=== PATIENT | female | born 1955 | race African-American/Black ===

== ENCOUNTER 2017-06-26 02:46 | Emergency (ER) | payer SELFPAY ==
[~2017-06-26] VITALS: Ht 172.7 cm; Wt 88.9 kg
[2017-06-26] MEDS ORDERED: ALBUTEROL SULF 2.5 MG/0.5ML(0.5%) NEB SOLN NEB ONE ×2 (03:15→03:30)
[2017-06-26] MEDS ORDERED: methylPREDNISolone SOD SUCC 125 MG/2 ML VL IV ONE (03:15)
[2017-06-26] MEDS ORDERED: IPRATROPIUM BROM 0.5 MG/2.5ML INH SOL NEB ONE ×2 (03:15→03:30)
[2017-06-26 03:31] LABS: Basophils # (auto) 0 uL; Basophils % (auto) 0.1 % (0.0-2.0); CONDITION Y; Eosinophils # (auto) 0 uL; Eosinophils % (auto) 0.3 % (0.0-7.0); Hematocrit 31.4 % (36.0-46.0); Hemoglobin 10.5 g/dL (12.2-16.2); Lymphocytes # (auto) 1.4 uL; Lymphocytes % (auto) 11.6 % (10.0-50.0); Mean Corpuscular Hgb Conc. 33.6 g/dL (32.0-36.0); Mean Corpuscular Volume 80.5 fL (80.0-100.0); Mean Platelet Volume 8.4 fL (7.4-10.4); Monocytes # (auto) 0.9 uL; Platelet Count (auto) 266 10^3/uL (140-450); Red Cell Distribution Width 13.5 % (11.6-16.0); White Blood Cell 12.3 10^3/uL (4.4-10.8)
[2017-06-26] MEDS ORDERED: ONDANSETRON HCL 4 MG/2 ML VIAL ONE (03:35)
[2017-06-26 03:50] LABS: INR 0.92 (0.9-1.15); Partial Thromboplastin Time 31.2 sec (22.64-33.71)
[2017-06-26 03:52] LABS: Albumin 2.6 g/dL (3.4-5.0); Anion Gap 14 (5-15); Aspartate Aminotransferase 36 U/L (15-37); BUN/Creatinine Ratio 6.7; Blood Urea Nitrogen 40 mg/dL (7-18); Carbon Dioxide 23 mmol/L (21-32); Chloride 88 mmol/L (98-107); GFR African American 9 mL/min; GFR Non-African American 8 mL/min; Glucose 107 mg/dL (74-106); Magnesium 2.6 mg/dL (1.6-2.6); Potassium 3.3 mmol/L (3.5-5.1); Sodium 125 mmol/L (136-145)
[2017-06-26 04:01] LABS: Alkaline Phosphatase 73 U/L (45-117); Bilirubin, Total 0.5 mg/dL (0.2-1.0); Total Protein 8.3 g/dL (6.4-8.2)
[2017-06-26] MEDS ORDERED: POTASSIUM CHL 20 Meq TABLET PO ONE (04:15)
[2017-06-26] MEDS ORDERED: SODIUM CHLORIDE 0.9% 1,000 ML IV ONE (04:15)
[2017-06-26 04:47] LABS: Urine Bilirubin Negative (Negative); Urine Blood 2+ /uL (Negative); Urine Color Yellow (Yellow); Urine Glucose Normal (Normal); Urine Hyaline Cast MOD /lpf (0 - 2); Urine Ketone Negative (Negative); Urine Mucus FEW (None Seen); Urine Nitrite Negative (Negative); Urine RBC 9 /hpf (0 - 4); Urine Squamous Epithelial Cell FEW /hpf (<5); Urine Urobilinogen Normal (Negative)
[2017-06-26] MEDS ORDERED: metroNIDAZOLE 500MG/100ML 100 ML IV ONE (08:00)
[2017-06-26] MEDS ORDERED: PIPERACILLIN-TAZOB 3.375GM 100 ML IV ONE (08:00)
[2017-06-26 10:23] VITALS: BP 150/89
== END 2017-06-26 04:35 | disposition home or self-care (01) ==
LOC: ER 02:46
DX: J40 Bronchitis, not specified as acute or chronic (principal); E87.6 Hypokalemia; J45.909 Unspecified asthma, uncomplicated; I10 Essential (primary) hypertension; Z90.710 Acquired absence of both cervix and uterus; Z90.49 Acquired absence of other specified parts of digestive tract
CPT/HCPCS: 36415; 71020; 74176; 80053; 81001; 83735; 84484; 85025; 85610; 85730; 87040; 93005; 94640; 96361; 96365; 96367; 96375; 99285; J2405; J2543; J2930; J3490; J7030

== ENCOUNTER 2017-06-28 13:29 | Inpatient (IN) | payer MEDICAID, OTHER ==
[~2017-06-28] VITALS: Ht 172.7 cm; Wt 97.0 kg
[2017-06-28 14:40] LABS: Basophils # (auto) 0.1 uL; Basophils % (auto) 0.4 % (0.0-2.0); Eosinophils # (auto) 0.1 uL; Eosinophils % (auto) 0.4 % (0.0-7.0); Hematocrit 28.3 % (36.0-46.0); Hemoglobin 9.5 g/dL (12.2-16.2); Lymphocytes # (auto) 1.2 uL; Lymphocytes % (auto) 7.2 % (10.0-50.0); Mean Corpuscular Hemoglobin 26.8 pg (28.0-32.0); Mean Corpuscular Hgb Conc. 33.4 g/dL (32.0-36.0); Mean Corpuscular Volume 80.4 fL (80.0-100.0); Mean Platelet Volume 7.1 fL (7.4-10.4); Monocytes # (auto) 1.2 uL; Monocytes % (auto) 7.1 % (0.0-12.0); Neutrophils # (auto) 14.3 uL; Neutrophils % (auto) 84.9 % (37.0-80.0); Platelet Count (auto) 284 10^3/uL (140-450); Red Cell Distribution Width 13.3 % (11.6-16.0); White Blood Cell 16.9 10^3/uL (4.4-10.8)
[2017-06-28 15:02] LABS: Albumin 2.4 g/dL (3.4-5.0); Alkaline Phosphatase 66 U/L (45-117); Anion Gap 12 (5-15); Aspartate Aminotransferase 30 U/L (15-37); BUN/Creatinine Ratio 7.8; Bilirubin, Total 0.3 mg/dL (0.2-1.0); Blood Urea Nitrogen 50 mg/dL (7-18); Calcium 7.9 mg/dL (8.5-10.1); Carbon Dioxide 23 mmol/L (21-32); Chloride 89 mmol/L (98-107); GFR African American 8 mL/min; GFR Non-African American 7 mL/min; Glucose 99 mg/dL (74-106); Magnesium 2.9 mg/dL (1.6-2.6); Potassium 3.3 mmol/L (3.5-5.1); Sodium 124 mmol/L (136-145); Total Protein 7.9 g/dL (6.4-8.2)
[2017-06-28] MEDS ORDERED: SODIUM CHLORIDE 0.9% 1,000 ML IV ONE (15:30)
[2017-06-28] MEDS ORDERED: PROMETHAZINE HCL 25 MG/ML 1ML IV PRN (16:15)
[2017-06-28] MEDS ORDERED: TEMAZEPAM 15 MG CAP PO PRN (16:15)
[2017-06-28] MEDS ORDERED: LACTULOSE 20Gm/30ML SOLN PO PRN (16:15)
[2017-06-28] MEDS ORDERED: POTASSIUM CHL 10% (20 MEQ/15ML) 15ml ORAL SOLN PO ONE (16:15)
[2017-06-28] MEDS ORDERED: ALBUTEROL SULF 2.5 MG/0.5ML(0.5%) NEB SOLN NEB PRN (16:15)
[2017-06-28] MEDS ORDERED: cefTRIAXone 1GM/50ML D5W 50 ML IV ONE (16:15)
[2017-06-28] MEDS ORDERED: MORPHINE SULFATE 4 MG/ML SYRG IV PRN (16:15)
[2017-06-28] MEDS ORDERED: MORPHINE SULF INJ 2 MG/ML SYRINGE 1ML IV PRN ×2 (16:15)
[2017-06-28] MEDS ORDERED: LORazepam 0.5 MG TAB PO PRN (16:15)
[2017-06-28] MEDS ORDERED: NITROGLYCERIN 0.4 MG SL TAB SL PRN (16:15)
[2017-06-28] MEDS ORDERED: AZITHROMYCIN 500MG/D5W 250ML 250 ML IV ONE (16:15)
[2017-06-28] MEDS: SODIUM CHLORIDE 0.9% 1,000 ML IV SCH (16:33)
[2017-06-28] MEDS ORDERED: NITROGLYCERIN 0.2MG/HR TOPICAL PATCH TD ONE (16:45)
[2017-06-28] MEDS ORDERED: PANTOPRAZOLE 40 MG TAB PO ONE (16:45)
[2017-06-28] MEDS ORDERED: ENOXAPARIN SOD 30 MG/0.3 ML SYRINGE SC ONE (16:45)
[2017-06-28] MEDS ORDERED: ASPirin 81 mg TAB PO ONE (16:45)
[2017-06-28 16:51] LABS: INR 0.95 (0.9-1.15); Partial Thromboplastin Time 31.5 sec (22.64-33.71); Prothrombin Time 10.4 sec (9.37-12.3)
[2017-06-28] MEDS ORDERED: ENOXAPARIN SOD 60 MG/0.6 ML SYRINGE SC ONE (18:45)
[2017-06-28 18:48] VITALS: BP 154/79
[2017-06-28] MEDS: ALBUTEROL SULF 2.5 MG/0.5ML(0.5%) NEB SOLN NEB SCH (19:35)
[2017-06-28 19:57] LABS: Hematocrit 26.7 % (36.0-46.0); Hemoglobin 8.9 g/dL (12.2-16.2)
[2017-06-28 20:00] VITALS: BP 150/76
[2017-06-28 20:55] LABS: Urine Bilirubin Negative (Negative); Urine Blood 2+ /uL (Negative); Urine Color Yellow (Yellow); Urine Glucose TRACE mg/dL (Normal); Urine Hyaline Cast FEW /lpf (0 - 2); Urine Ketone Negative (Negative); Urine Mucus FEW (None Seen); Urine Nitrite Negative (Negative); Urine RBC 71 /hpf (0 - 4); Urine Squamous Epithelial Cell MOD /hpf (<5); Urine Urobilinogen Normal (Negative); Urine pH 6.5 (5.0-8.0)
[2017-06-28 21:36] VITALS: BP 154/79
[2017-06-28 22:00] VITALS: BP 150/76
[2017-06-28] MEDS: ATORVASTATIN 20 MG TAB PO SCH (22:16)
[2017-06-28] MEDS: METOPROLOL TARTRATE 25 MG TAB PO SCH (22:17)
[2017-06-28 23:51] VITALS: BP 150/76
[2017-06-29] MEDS: SODIUM CHLORIDE 0.9% 1,000 ML IV SCH ×4 (00:37→17:14)
[2017-06-29] MEDS ORDERED: MULTTAB61 PO (01:06)
[2017-06-29] MEDS ORDERED: AMLO5TAB2 PO (01:06)
[2017-06-29] MEDS: ALBUTEROL SULF 2.5 MG/0.5ML(0.5%) NEB SOLN NEB SCH ×2 (02:00→07:44)
[2017-06-29 02:37] LABS: Basophils # (auto) 0 uL; Basophils % (auto) 0.2 % (0.0-2.0); CONDITION Y; DEFINITIVE SEE PRINTOUT; Eosinophils # (auto) 0.1 uL; Eosinophils % (auto) 0.8 % (0.0-7.0); Hematocrit 24.2 % (36.0-46.0); Hemoglobin 8.2 g/dL (12.2-16.2); Lymphocytes # (auto) 1.3 uL; Lymphocytes % (auto) 10.8 % (10.0-50.0); Mean Corpuscular Hemoglobin 27.5 pg (28.0-32.0); Mean Corpuscular Volume 80.9 fL (80.0-100.0); Monocytes # (auto) 1.2 uL; Monocytes % (auto) 10.5 % (0.0-12.0); Neutrophils # (auto) 9.1 uL; Neutrophils % (auto) 77.7 % (37.0-80.0); Platelet Count (auto) 290 10^3/uL (140-450); Red Cell Distribution Width 13.7 % (11.6-16.0); White Blood Cell 11.7 10^3/uL (4.4-10.8)
[2017-06-29 03:15] LABS: BUN/Creatinine Ratio 7.6; Bilirubin, Total 0.3 mg/dL (0.2-1.0); Calcium 7.3 mg/dL (8.5-10.1); Potassium 3.7 mmol/L (3.5-5.1); Total Protein 6.5 g/dL (6.4-8.2)
[2017-06-29 05:00] VITALS: BP 136/75
[2017-06-29 08:00] VITALS: BP 142/77
[2017-06-29] MEDS ORDERED: cefTRIAXone 1GM/50ML D5W 50 ML IV SCH (09:00)
[2017-06-29 09:35] VITALS: BP 142/77
[2017-06-29] MEDS ORDERED: NITROGLYCERIN 0.2MG/HR TOPICAL PATCH TD SCH (10:00)
[2017-06-29] MEDS ORDERED: PANTOPRAZOLE 40 MG TAB PO SCH (10:00)
[2017-06-29] MEDS ORDERED: ENOXAPARIN SOD 30 MG/0.3 ML SYRINGE SC SCH (10:00)
[2017-06-29] MEDS ORDERED: methylPREDNISolone SOD SUCC 500 MG in SODIUM CHL 0.9% 100 ML IV ONE (10:30)
[2017-06-29] MEDS: METOPROLOL TARTRATE 25 MG TAB PO SCH ×2 (10:57→21:33)
[2017-06-29] MEDS: ASPirin 81 mg TAB PO SCH (11:00)
[2017-06-29] MEDS ORDERED: LEVOFLOXACIN 500MG 100 ML IV SCH (12:15)
[2017-06-29] MEDS ORDERED: LEVOFLOXACIN 250MG 50 ML IV SCH (12:30)
[2017-06-29 13:43] VITALS: BP_SYST 126; BP_SYST 142; BP_DIAS 71; BP_DIAS 77
[2017-06-29 17:11] VITALS: BP 132/77
[2017-06-29] MEDS: ENOXAPARIN SOD 30 MG/0.3 ML SYRINGE SC SCH (17:55)
[2017-06-29] MEDS ORDERED: ENOXAPARIN SOD 100 MG/1 ML SYRINGE SC SCH (18:00)
[2017-06-29 20:00] VITALS: BP 132/64
[2017-06-29] MEDS: ATORVASTATIN 20 MG TAB PO SCH (21:33)
[2017-06-30] VITALS (7 sets, daily range): BP systolic 140–159; BP diastolic 56–85
[2017-06-30 06:53] LABS: Albumin 2.3 g/dL (3.4-5.0); Bilirubin, Direct 0.1 mg/dL (0-0.2); Bilirubin, Total 0.3 mg/dL (0.2-1.0); Phosphorus 3.9 mg/dL (2.5-4.90); Total Protein 7.6 g/dL (6.4-8.2); Uric Acid 7.6 mg/dL (2.6-6.0)
[2017-06-30] MEDS ORDERED: ceFAZolin 1GM/50ML D5W 50 ML IV ONE (07:42)
[2017-06-30] MEDS ORDERED: ACETAMINOPHEN 500 MG TAB PO PRN (08:30)
[2017-06-30] MEDS: METOPROLOL TARTRATE 25 MG TAB PO SCH ×2 (08:36→21:36)
[2017-06-30] MEDS: ASPirin 81 mg TAB PO SCH (09:10)
[2017-06-30 09:56] LABS: Urine Bilirubin Negative (Negative); Urine Blood 2+ /uL (Negative); Urine Color Yellow (Yellow); Urine Glucose 2+ mg/dL (Normal); Urine Hyaline Cast FEW /lpf (0 - 2); Urine Ketone Negative (Negative); Urine Nitrite Negative (Negative); Urine RBC 63 /hpf (0 - 4); Urine Squamous Epithelial Cell FEW /hpf (<5); Urine Urobilinogen Normal (Negative); Urine pH 6.5 (5.0-8.0)
[2017-06-30 09:59] LABS: Hepatitis B Surface Antibody Negative
[2017-06-30] MEDS: SODIUM CHLORIDE 0.9% 1,000 ML IV SCH ×2 (10:37→14:50)
[2017-06-30] MEDS: ENOXAPARIN SOD 30 MG/0.3 ML SYRINGE SC SCH (15:42)
[2017-06-30] MEDS ORDERED: methylPREDNISolone SOD SUCC 500 MG in SODIUM CHL 0.9% 100 ML IV ONE (19:00)
[2017-06-30] MEDS: ATORVASTATIN 20 MG TAB PO SCH (21:36)
[2017-07-01] VITALS (7 sets, daily range): BP systolic 148–163; BP diastolic 71–93
[2017-07-01 05:06] LABS: Thyroid Peroxidase (TPO) Ab 10 IU/mL (0-34)
[2017-07-01 05:06] LABS: Thyroid Peroxidase (TPO) Ab 11 IU/mL (0-34)
[2017-07-01] MEDS: SODIUM CHLORIDE 0.9% 1,000 ML IV SCH ×2 (05:08→14:24)
[2017-07-01 06:21] LABS: Basophils # (auto) 0 uL; Eosinophils # (auto) 0 uL; Hematocrit 25.9 % (36.0-46.0); Hemoglobin 8.4 g/dL (12.2-16.2); Lymphocytes # (auto) 0.8 uL; Lymphocytes % (auto) 4.2 % (10.0-50.0); Mean Corpuscular Hemoglobin 26.2 pg (28.0-32.0); Mean Corpuscular Hgb Conc. 32.2 g/dL (32.0-36.0); Mean Corpuscular Volume 81.4 fL (80.0-100.0); Mean Platelet Volume 7.9 fL (7.4-10.4); Monocytes # (auto) 0.2 uL; Monocytes % (auto) 1.2 % (0.0-12.0); Neutrophils # (auto) 17.7 uL; Neutrophils % (auto) 94.6 % (37.0-80.0); Platelet Count (auto) 350 10^3/uL (140-450); Red Cell Distribution Width 13.9 % (11.6-16.0); White Blood Cell 18.7 10^3/uL (4.4-10.8)
[2017-07-01 07:03] LABS: Calcium 7.7 mg/dL (8.5-10.1); Potassium 4.4 mmol/L (3.5-5.1)
[2017-07-01 07:05] LABS: BUN/Creatinine Ratio 8.4
[2017-07-01] MEDS: ASPirin 81 mg TAB PO SCH (10:14)
[2017-07-01] MEDS: METOPROLOL TARTRATE 25 MG TAB PO SCH ×2 (10:14→22:00)
[2017-07-01] MEDS ORDERED: LIDOCAINE 2%HCL (LOCAL ANESTH.) INJ 20ML MDV ONE (12:47)
[2017-07-01] MEDS ORDERED: MIDAZOLAM HCL 1MG/1ML-2 ML VIAL ONE (13:13)
[2017-07-01] MEDS ORDERED: fentaNYL CITRATE 100 MCG/2 ML VL ONE (13:13)
[2017-07-01] MEDS ORDERED: methylPREDNISolone SOD SUCC 500 MG in SODIUM CHL 0.9% 100 ML IV ONE (17:30)
[2017-07-01 19:11] LABS: Sjogren's Anti-SS-A Antibody <0.2 AI (0.0-0.9)
[2017-07-01 19:11] LABS: Sjogren's Anti-SS-A Antibody <0.2 AI (0.0-0.9)
[2017-07-01] MEDS: ATORVASTATIN 20 MG TAB PO SCH (22:00)
[2017-07-02 05:00] VITALS: BP 155/70
[2017-07-02 06:26] LABS: Hemoglobin 7.7 g/dL (12.2-16.2); Mean Corpuscular Hemoglobin 27.2 pg (28.0-32.0); Mean Corpuscular Hgb Conc. 33.5 g/dL (32.0-36.0); Mean Corpuscular Volume 81.2 fL (80.0-100.0); Mean Platelet Volume 7.9 fL (7.4-10.4); Platelet Count (auto) 331 10^3/uL (140-450); Red Cell Distribution Width 14.2 % (11.6-16.0); White Blood Cell 14.4 10^3/uL (4.4-10.8)
[2017-07-02 06:38] LABS: Metamyelocytes % 0; Myelocytes % 0; Promyelocytes % 0; Reactive Lymphocytes 0
[2017-07-02 06:39] LABS: Calcium 7.4 mg/dL (8.5-10.1); Potassium 4.1 mmol/L (3.5-5.1)
[2017-07-02 07:48] LABS: Platelet Estimate Adequate
[2017-07-02 08:35] VITALS: BP 158/82
[2017-07-02] MEDS: ASPirin 81 mg TAB PO SCH (09:22)
[2017-07-02] MEDS: METOPROLOL TARTRATE 25 MG TAB PO SCH (09:22)
[2017-07-02] MEDS: SODIUM CHLORIDE 0.9% 1,000 ML IV SCH (09:23)
[2017-07-02 10:07] LABS: Anti-intermyofibrillar Ab Negative (Neg:<1:20); Anti-sarcolemma Antibody Negative (Neg:<1:20)
[2017-07-02 10:07] LABS: Anti-intermyofibrillar Ab Negative (Neg:<1:20); Anti-sarcolemma Antibody Negative (Neg:<1:20)
[2017-07-02 11:07] LABS: Antiproteinase 3 (PR-3) Ab <3.5 U/mL (0.0-3.5)
[2017-07-02 11:46] VITALS: BP 154/68
[2017-07-02] MEDS ORDERED: MET25T PO (12:34)
[2017-07-02] MEDS ORDERED: ALBUAER3 IN (12:34)
[2017-07-02] MEDS ORDERED: GUAI600T23 PO (12:34)
[2017-07-02] MEDS ORDERED: FER325T PO (12:40)
[2017-07-02] MEDS ORDERED: PANT40TA2 PO (12:40)
== END 2017-07-02 16:02 | disposition home or self-care (01) | DRG 470 ==
LOC: EDBD 13:29 → ER 13:36 → TELE 13:37 → TELE-WESTW 18:35
PROVIDERS: ADMIT Internal Medicine; ATTEND Internal Medicine
PROC: 0TB13ZX Excision of Left Kidney, Percutaneous Approach, Diagnostic (ICD-10-PCS; principal; 2017-07-01)
DX: I12.0 Hypertensive chronic kidney disease with stage 5 chronic kidney disease or end stage renal disease (principal); E43 Unspecified severe protein-calorie malnutrition; N17.9 Acute kidney failure, unspecified; J18.9 Pneumonia, unspecified organism; N18.5 Chronic kidney disease, stage 5; M62.82 Rhabdomyolysis; E87.1 Hypo-osmolality and hyponatremia; E87.6 Hypokalemia; D63.8 Anemia in other chronic diseases classified elsewhere; E66.9 Obesity, unspecified; J45.909 Unspecified asthma, uncomplicated; R31.29 Other microscopic hematuria; T38.0X5A Adverse effect of glucocorticoids and synthetic analogues, initial encounter; Z87.891 Personal history of nicotine dependence; Z68.30 Body mass index [BMI] 30.0-30.9, adult; Z90.710 Acquired absence of both cervix and uterus; Z90.49 Acquired absence of other specified parts of digestive tract; Z88.8 Allergy status to other drugs, medicaments and biological substances; Z88.5 Allergy status to narcotic agent; Z68.32 Body mass index [BMI] 32.0-32.9, adult
CPT/HCPCS: 10022; 36415; 71010; 76775; 77012; 78582; 80048; 80053; 80061; 80076; 80307; 81001; 82306; 82550; 82570; 83520; 83540; 83550; 83735; 83874; 84100; 84156; 84300; 84443; 84484; 84550; 85007; 85014; 85018; 85025; 85027; 85045; 85379; 85610; 85652; 85730; 86225; 86235; 86256; 86703; 86704; 86706; 86708; 86803; 87040; 87086; 87278; 87340; 93005; 93306; 93970; 94640; 94761; 96361; 96365; 96368; 96372; J0690; J0696; J2250

== ENCOUNTER 2017-07-09 17:47 | Inpatient (IN) | payer MEDICAID ==
[~2017-07-09] VITALS: Ht 175.3 cm; Wt 92.7 kg
[~2017-07-09 17:47] MED LIST: ALBUAER3 IN; AMLO5TAB2 PO; FER325T PO; GUAI600T23 PO; MET25T PO; MULTTAB61 PO; PANT40TA2 PO
[2017-07-09 18:57] LABS: Basophils # (auto) 0 uL; Basophils % (auto) 0.2 % (0.0-2.0); Eosinophils # (auto) 0 uL; Hematocrit 26.4 % (36.0-46.0); Hemoglobin 8.9 g/dL (12.2-16.2); Lymphocytes # (auto) 0.6 uL; Lymphocytes % (auto) 2.9 % (10.0-50.0); Mean Corpuscular Hemoglobin 27.3 pg (28.0-32.0); Mean Corpuscular Hgb Conc. 33.6 g/dL (32.0-36.0); Mean Corpuscular Volume 81.1 fL (80.0-100.0); Mean Platelet Volume 8.2 fL (6.9-10.8); Monocytes # (auto) 0.4 uL; Monocytes % (auto) 2.1 % (0.0-12.0); Neutrophils # (auto) 18.6 uL; Neutrophils % (auto) 94.8 % (37.0-80.0); Platelet Count (auto) 262 10^3/uL (140-450); Red Cell Distribution Width 14.6 % (11.8-14.3); White Blood Cell 19.6 10^3/uL (4.4-10.8)
[2017-07-09 19:02] LABS: Albumin 2.7 g/dL (3.4-5.0); BUN/Creatinine Ratio 15.2; Bilirubin, Total 0.5 mg/dL (0.2-1.0); Calcium 7.9 mg/dL (8.5-10.1); Potassium 4.1 mmol/L (3.5-5.1); Total Protein 7.5 g/dL (6.4-8.2)
[2017-07-09 20:56] LABS: Urine Bilirubin Negative (Negative); Urine Blood 2+ /uL (Negative); Urine Color Yellow (Yellow); Urine Glucose TRACE mg/dL (Normal); Urine Hyaline Cast FEW /lpf (0 - 2); Urine Ketone Negative (Negative); Urine Nitrite Negative (Negative); Urine RBC 37 /hpf (0 - 4); Urine Squamous Epithelial Cell FEW /hpf (<5); Urine Urobilinogen Normal (Negative)
[2017-07-09] MEDS ORDERED: PRE5T GT (22:58)
[2017-07-09] MEDS ORDERED: FURO40TA4 PO (22:58)
[2017-07-10] VITALS (8 sets, daily range): BP systolic 133–182; BP diastolic 67–99
[2017-07-10] MEDS ORDERED: ALBUTEROL SULF 2.5 MG/0.5ML(0.5%) NEB SOLN NEB PRN (01:45)
[2017-07-10] MEDS ORDERED: MORPHINE SULF INJ 2 MG/ML SYRINGE 1ML IV PRN (01:45)
[2017-07-10] MEDS ORDERED: TEMAZEPAM 15 MG CAP PO PRN (01:45)
[2017-07-10] MEDS ORDERED: ONDANSETRON HCL 4 MG/2 ML VIAL IV PRN (01:45)
[2017-07-10] MEDS ORDERED: ACETAMINOPHEN 325 MG TAB PO PRN (01:45)
[2017-07-10] MEDS ORDERED: cefTRIAXone 1GM/50ML D5W 50 ML IV ONE (01:45)
[2017-07-10] MEDS ORDERED: AML5T PO (04:07)
[2017-07-10] MEDS ORDERED: PRE5T PO (04:07)
[2017-07-10] MEDS ORDERED: FUROSEMIDE 40 MG TAB PO SCH (06:00)
[2017-07-10] MEDS ORDERED: amLODIPine BESYLATE 5 MG TAB PO SCH (10:00)
[2017-07-10] MEDS: ENOXAPARIN SOD 30 MG/0.3 ML SYRINGE SC SCH (11:12)
[2017-07-10] MEDS: PANTOPRAZOLE 40 MG TAB PO SCH (11:13)
[2017-07-10] MEDS: METOPROLOL TARTRATE 25 MG TAB PO SCH ×2 (11:14→21:29)
[2017-07-10] MEDS ORDERED: TUBERCULIN PPD 5 UNIT/0.1 ML ID ONE (13:00)
[2017-07-10] MEDS: cefTRIAXone 1GM/50ML D5W 50 ML IV SCH (13:00)
[2017-07-10] MEDS ORDERED: amLODIPine BESYLATE 5 MG TAB PO ONE (13:15)
[2017-07-10] MEDS ORDERED: predniSONE 20 MG TAB PO ONE (13:15)
[2017-07-10] MEDS ORDERED: FUROSEMIDE 40 MG TAB PO ONE (15:45)
[2017-07-10] MEDS: FUROSEMIDE 40 MG TAB PO SCH (18:00)
[2017-07-10] MEDS ORDERED: cefTRIAXone 1GM/50ML D5W 50 ML IV SCH (22:00)
[2017-07-11 05:00] VITALS: BP 153/84
[2017-07-11] MEDS: FUROSEMIDE 40 MG TAB PO SCH ×2 (05:51→15:26)
[2017-07-11 06:27] LABS: Hematocrit 25.2 % (36.0-46.0); Hemoglobin 8.4 g/dL (12.2-16.2); Mean Corpuscular Hemoglobin 26.9 pg (28.0-32.0); Mean Corpuscular Hgb Conc. 33.3 g/dL (32.0-36.0); Mean Corpuscular Volume 80.7 fL (80.0-100.0); Mean Platelet Volume 8.9 fL (6.9-10.8); Platelet Count (auto) 195 10^3/uL (140-450); Red Cell Distribution Width 15.2 % (11.8-14.3); White Blood Cell 14.1 10^3/uL (4.4-10.8)
[2017-07-11 06:31] LABS: Metamyelocytes % 0; Myelocytes % 0; Promyelocytes % 0; Reactive Lymphocytes 0
[2017-07-11 06:55] LABS: Albumin 2.5 g/dL (3.4-5.0); BUN/Creatinine Ratio 15.3; Bilirubin, Total 0.5 mg/dL (0.2-1.0); Calcium 7.5 mg/dL (8.5-10.1); Phosphorus 5.6 mg/dL (2.5-4.90); Total Protein 6.7 g/dL (6.4-8.2)
[2017-07-11 08:00] VITALS: BP 160/83
[2017-07-11 08:36] VITALS: BP 160/83
[2017-07-11 09:08] LABS: Platelet Estimate Adequate
[2017-07-11] MEDS: METOPROLOL TARTRATE 25 MG TAB PO SCH (09:59)
[2017-07-11] MEDS: PANTOPRAZOLE 40 MG TAB PO SCH (09:59)
[2017-07-11] MEDS ORDERED: amLODIPine BESYLATE 5 MG TAB PO SCH (10:00)
[2017-07-11] MEDS: ENOXAPARIN SOD 30 MG/0.3 ML SYRINGE SC SCH (10:00)
[2017-07-11] MEDS ORDERED: CYCLOPHOSPHAMIDE IV ONE ×2 (10:30→11:00)
[2017-07-11] MEDS ORDERED: SODIUM CHL 0.9% IV ONE (11:00)
[2017-07-11 12:51] VITALS: BP 152/83
[2017-07-11 15:17] VITALS: BP 152/83
[2017-07-11] MEDS: cefTRIAXone 1GM/50ML D5W 50 ML IV SCH (18:56)
[2017-07-13 16:06] LABS: Vitamin D 25-Hydroxy 18 ng/mL (.); Vitamin D-2 25-Hydroxy <1.0 ng/mL (.)
== END 2017-07-11 20:02 | disposition home or self-care (01) | DRG 462 ==
LOC: ER 17:49 → OVERFLOW 17:50 → WEST WING 07-10 02:42
PROVIDERS: ADMIT Internal Medicine; ATTEND Internal Medicine
DX: N01.9 Rapidly progressive nephritic syndrome with unspecified morphologic changes (principal); E43 Unspecified severe protein-calorie malnutrition; M31.7 Microscopic polyangiitis; N17.9 Acute kidney failure, unspecified; I12.0 Hypertensive chronic kidney disease with stage 5 chronic kidney disease or end stage renal disease; N18.6 End stage renal disease; K21.9 Gastro-esophageal reflux disease without esophagitis; D72.829 Elevated white blood cell count, unspecified; E66.9 Obesity, unspecified; K44.9 Diaphragmatic hernia without obstruction or gangrene; D64.9 Anemia, unspecified; Z82.49 Family history of ischemic heart disease and other diseases of the circulatory system; Z68.31 Body mass index [BMI] 31.0-31.9, adult; Z88.5 Allergy status to narcotic agent; Z79.899 Other long term (current) drug therapy; Z90.49 Acquired absence of other specified parts of digestive tract; Z90.710 Acquired absence of both cervix and uterus
CPT/HCPCS: 36415; 71010; 74176; 80053; 80307; 81001; 82306; 82728; 83540; 83550; 83690; 83970; 84100; 85007; 85025; 85027; 85652; 87040; 87081; 87086; 93005; J0696; J9070

== ENCOUNTER 2017-10-10 11:24 | Inpatient (IN) | payer MEDICAID ==
[~2017-10-10] VITALS: Ht 172.7 cm; Wt 82.9 kg
[2017-10-10] VITALS (9 sets, daily range): BP systolic 104–150; BP diastolic 54–77
[~2017-10-10 11:24] MED LIST changes: +AML5T PO; -AMLO5TAB2 PO; +FURO40TA4 PO; +PRE5T PO
[2017-10-10 12:12] LABS: Hemoglobin 7.2 g/dL (12.2-16.2); Platelet Count (auto) 166 10^3/uL (140-450)
[2017-10-10 12:14] LABS: Hematocrit 21.2 % (36.0-46.0); Mean Corpuscular Hemoglobin 31.1 pg (28.0-32.0); Mean Corpuscular Hgb Conc. 33.8 g/dL (32.0-36.0); Mean Corpuscular Volume 92.1 fL (80.0-100.0)
[2017-10-10 12:19] LABS: White Blood Cell 1.9 10^3/uL (4.4-10.8)
[2017-10-10 12:20] LABS: Red Cell Distribution Width 23.8 % (11.8-14.3)
[2017-10-10 12:21] LABS: Band Neutrophils % (manual) 0; Basophils % (manual) 0 (0.0-2.0); Blast Cells 0; Eosinophils % (manual) 0 (0-7); Metamyelocytes % 0; Myelocytes % 0; Promyelocytes % 0; Reactive Lymphocytes 0
[2017-10-10 12:30] LABS: Albumin 2.7 g/dL (3.4-5.0); BUN/Creatinine Ratio 6.3; Bilirubin, Total 0.7 mg/dL (0.2-1.0); Potassium 3.4 mmol/L (3.5-5.1); Total Protein 6.1 g/dL (6.4-8.2)
[2017-10-10 13:27] LABS: Lymphocytes % (manual) 3 (10.0-50.0); Monocytes % (manual) 3 (0-12)
[2017-10-10] MEDS ORDERED: ACETAMINOPHEN 325 MG TAB PO ONE (13:45)
[2017-10-10] MEDS ORDERED: ALBUTEROL SULF 2.5 MG/0.5ML(0.5%) NEB SOLN HHN ONE (13:45)
[2017-10-10] MEDS ORDERED: LEVOFLOXACIN 500MG 100 ML IV ONE (13:45)
[2017-10-10] MEDS ORDERED: IPRATROPIUM BROM 0.5 MG/2.5ML INH SOL HHN ONE (13:45)
[2017-10-10] MEDS ORDERED: SODIUM CHLORIDE 0.9% 1,000 ML IV ONE (13:45)
[2017-10-10] MEDS ORDERED: FILGRASTIM 300 MCG INJ VIAL SC ONE (16:45)
[2017-10-10] MEDS ORDERED: MORPHINE SULFATE 4 MG/ML SYR/VIAL IV PRN ×3 (16:45)
[2017-10-10] MEDS ORDERED: LACTULOSE 20Gm/30ML SOLN PO PRN (16:45)
[2017-10-10] MEDS ORDERED: LORazepam 0.5 MG TAB PO PRN (16:45)
[2017-10-10] MEDS ORDERED: NITROGLYCERIN 0.4 MG SL TAB SL PRN (16:45)
[2017-10-10] MEDS ORDERED: cefTRIAXone 1GM/10ml IVPUSH 10 ML IV ONE (16:45)
[2017-10-10] MEDS ORDERED: TEMAZEPAM 15 MG CAP PO PRN (16:45)
[2017-10-10 17:00] LABS: Hematocrit 18.2 % (36.0-46.0)
[2017-10-10] MEDS ORDERED: PANTOPRAZOLE 40 MG TAB PO ONE (17:00)
[2017-10-10 17:13] LABS: Hemoglobin 6.2 g/dL (12.2-16.2)
[2017-10-10] MEDS: SODIUM CHLOR 0.9% PF (SALINE LOCK) 10ML VIAL IV SCH (22:00)
[2017-10-11] VITALS (9 sets, daily range): BP systolic 132–154; BP diastolic 60–92
[2017-10-11 03:10] LABS: Hematocrit 26.7 % (36.0-46.0); Hemoglobin 9.1 g/dL (12.2-16.2); Mean Corpuscular Hemoglobin 30.3 pg (28.0-32.0); Mean Corpuscular Hgb Conc. 34.2 g/dL (32.0-36.0); Mean Corpuscular Volume 88.4 fL (80.0-100.0); Platelet Count (auto) 143 10^3/uL (140-450); Red Blood Cells 3.02 10^6/uL (4.0-5.20)
[2017-10-11 03:13] LABS: Red Cell Distribution Width 21.2 % (11.8-14.3)
[2017-10-11 03:14] LABS: Band Neutrophils % (manual) 0; Basophils % (manual) 0 (0.0-2.0); Blast Cells 0; Metamyelocytes % 0; Monocytes % (manual) 0 (0-12); Myelocytes % 0; Promyelocytes % 0; Reactive Lymphocytes 0
[2017-10-11 03:33] LABS: Albumin 2.4 g/dL (3.4-5.0); BUN/Creatinine Ratio 7.2; Bilirubin, Total 0.6 mg/dL (0.2-1.0); Calcium 7.5 mg/dL (8.5-10.1); Total Protein 5.7 g/dL (6.4-8.2)
[2017-10-11 04:57] LABS: Eosinophils % (manual) 3 (0-7); Lymphocytes % (manual) 2 (10.0-50.0)
[2017-10-11] MEDS: ACETAMINOPHEN 500 MG TAB PO PRN (05:05)
[2017-10-11] MEDS ORDERED: ALBUTEROL SULF 2.5 MG/0.5ML(0.5%) NEB SOLN ONE (05:57)
[2017-10-11] MEDS ORDERED: FUROSEMIDE 40 MG/4 ML VIAL IV ONE (06:00)
[2017-10-11] MEDS: SODIUM CHLOR 0.9% PF (SALINE LOCK) 10ML VIAL IV SCH ×3 (06:25→22:23)
[2017-10-11 06:35] LABS: Urine Bacteria NONE SEEN /hpf (None Seen); Urine Blood TRACE /uL (Negative); Urine Specific Gravity 1.015 (1.001-1.035); Urine WBC 2 /hpf (0 - 5)
[2017-10-11] MEDS: ALBUTEROL SULF 2.5 MG/0.5ML(0.5%) NEB SOLN NEB SCH ×3 (06:40→19:52)
[2017-10-11] MEDS ORDERED: cefTRIAXone 1GM/10ml IVPUSH 10 ML IV SCH (09:00)
[2017-10-11] MEDS: PANTOPRAZOLE 40 MG TAB PO SCH (09:47)
[2017-10-11] MEDS ORDERED: SODIUM CHL 0.9% 1000 ML BAG XX ONE (11:15)
[2017-10-11] MEDS ORDERED: EPOETIN ALFA 10,000 UNIT/1 ML VIAL IV ONE (11:15)
[2017-10-11] MEDS ORDERED: POTASSIUM CHL 20 Meq TABLET PO ONE (11:15)
[2017-10-11 11:38] LABS: Protein, Urine 474.9 mg/dL (0.0-11.9)
[2017-10-11] MEDS ORDERED: SODIUM CHLORIDE 0.9% 1,000 ML IV SCH (13:30)
[2017-10-11] MEDS ORDERED: predniSONE 20 MG TAB PO ONE (13:30)
[2017-10-11] MEDS ORDERED: VANCOMYCIN PER PHARMACY 0 MG IV SCH (13:30)
[2017-10-11] MEDS ORDERED: MORPHINE SULFATE 4 MG/ML SYR/VIAL IV PRN (13:30)
[2017-10-11] MEDS ORDERED: CYCL60CA PO (13:35)
[2017-10-11] MEDS ORDERED: PIPERACILLIN-TAZOB 0.75 GM in D5W 5% 50 ML IV SCH (14:00)
[2017-10-11] MEDS ORDERED: PIPERACILLIN-TAZOB 3.375GM 50 ML IV ONE (14:00)
[2017-10-11] MEDS ORDERED: VANCOMYCIN 1GM/250ML 250 ML IV ONE (15:00)
[2017-10-11] MEDS: PIPERACILLIN-TAZOB 2.25GM 50 ML IV SCH (22:23)
[2017-10-12] MEDS: ALBUTEROL SULF 2.5 MG/0.5ML(0.5%) NEB SOLN NEB SCH ×4 (00:45→19:24)
[2017-10-12] MEDS: ACETAMINOPHEN 500 MG TAB PO PRN ×3 (04:09→21:35)
[2017-10-12 05:10] VITALS: BP 150/77
[2017-10-12] MEDS: SODIUM CHLOR 0.9% PF (SALINE LOCK) 10ML VIAL IV SCH ×3 (06:06→22:00)
[2017-10-12 06:11] LABS: Hematocrit 25.6 % (36.0-46.0); Hemoglobin 8.7 g/dL (12.2-16.2); Mean Corpuscular Hemoglobin 30.3 pg (28.0-32.0); Mean Corpuscular Hgb Conc. 34.2 g/dL (32.0-36.0); Mean Corpuscular Volume 88.6 fL (80.0-100.0); Platelet Count (auto) 121 10^3/uL (140-450); Red Blood Cells 2.89 10^6/uL (4.0-5.20)
[2017-10-12 06:32] LABS: BUN/Creatinine Ratio 4.4; Calcium 7.4 mg/dL (8.5-10.1); Magnesium 1.9 mg/dL (1.6-2.6); Potassium 3.6 mmol/L (3.5-5.1)
[2017-10-12 06:50] LABS: Red Cell Distribution Width 21.6 % (11.8-14.3)
[2017-10-12 06:51] LABS: Band Neutrophils % (manual) 0; Basophils % (manual) 0 (0.0-2.0); Blast Cells 0; Eosinophils % (manual) 0 (0-7); Metamyelocytes % 0; Myelocytes % 0; Promyelocytes % 0; Reactive Lymphocytes 0
[2017-10-12 07:03] LABS: Lymphocytes % (manual) 1 (10.0-50.0); Monocytes % (manual) 10 (0-12)
[2017-10-12 07:30] VITALS: BP 139/83
[2017-10-12 08:55] VITALS: BP 139/83
[2017-10-12] MEDS ORDERED: SODIUM CHL 0.9% 1000 ML BAG XX ONE (10:30)
[2017-10-12] MEDS ORDERED: EPOETIN ALFA 10,000 UNIT/1 ML VIAL IV ONE (10:30)
[2017-10-12] MEDS: predniSONE 20 MG TAB PO SCH (10:35)
[2017-10-12] MEDS: PIPERACILLIN-TAZOB 2.25GM 50 ML IV SCH ×2 (10:36→22:21)
[2017-10-12] MEDS: PANTOPRAZOLE 40 MG TAB PO SCH (10:36)
[2017-10-12] MEDS ORDERED: MAGNESIUM SULFATE 1GM/100ML 100 ML IV ONE (12:45)
[2017-10-12 13:23] VITALS: BP 155/79
[2017-10-12] MEDS: ACYCLOVIR SOD 50MG/ML 500 MG in D5W 5% 100 ML IV SCH ×2 (14:20→22:21)
[2017-10-12] MEDS: SODIUM CHLORIDE 0.9% 1,000 ML IV SCH (14:21)
[2017-10-12 20:00] VITALS: BP 142/71
[2017-10-12] MEDS ORDERED: VANCOMYCIN 500 MG in D5W 5% 100 ML IV ONE (20:00)
[2017-10-12 22:03] VITALS: BP 142/71
[2017-10-13] VITALS (7 sets, daily range): BP systolic 128–162; BP diastolic 62–95
[2017-10-13] MEDS: ALBUTEROL SULF 2.5 MG/0.5ML(0.5%) NEB SOLN NEB SCH ×5 (00:44→23:53)
[2017-10-13] MEDS: ACETAMINOPHEN 500 MG TAB PO PRN ×2 (04:26→17:29)
[2017-10-13] MEDS: SODIUM CHLORIDE 0.9% 1,000 ML IV SCH ×2 (04:28→11:30)
[2017-10-13] MEDS: SODIUM CHLOR 0.9% PF (SALINE LOCK) 10ML VIAL IV SCH ×3 (06:12→22:20)
[2017-10-13] MEDS: ACYCLOVIR SOD 50MG/ML 500 MG in D5W 5% 100 ML IV SCH ×3 (06:12→22:22)
[2017-10-13 06:32] LABS: Basophils # (auto) 0 uL; Basophils % (auto) 0.5 % (0.0-2.0); Eosinophils # (auto) 0 uL; Eosinophils % (auto) 0.1 % (0.0-7.0); Hematocrit 24.9 % (36.0-46.0); Hemoglobin 8.5 g/dL (12.2-16.2); Lymphocytes # (auto) 0 uL; Mean Corpuscular Hemoglobin 30.4 pg (28.0-32.0); Mean Corpuscular Hgb Conc. 34.2 g/dL (32.0-36.0); Mean Corpuscular Volume 88.9 fL (80.0-100.0); Monocytes # (auto) 0.2 uL; Monocytes % (auto) 9.8 % (0.0-12.0); Neutrophils # (auto) 1.8 uL; Neutrophils % (auto) 88.6 % (37.0-80.0); Nucleated Red Blood Cells % 1.9 %; Platelet Count (auto) 114 10^3/uL (140-450)
[2017-10-13 06:37] LABS: Red Cell Distribution Width 22.1 % (11.8-14.3)
[2017-10-13 06:54] LABS: Albumin 2.1 g/dL (3.4-5.0); Bilirubin, Total 0.6 mg/dL (0.2-1.0); Calcium 7.4 mg/dL (8.5-10.1); Magnesium 2.2 mg/dL (1.6-2.6); Total Protein 5.2 g/dL (6.4-8.2)
[2017-10-13] MEDS: PANTOPRAZOLE 40 MG TAB PO SCH (09:59)
[2017-10-13] MEDS: predniSONE 20 MG TAB PO SCH (09:59)
[2017-10-13] MEDS ORDERED: VANCOMYCIN HCL 125MG/5ML ORAL SOL PO SCH (12:00)
[2017-10-13] MEDS: FILGRASTIM 480 MCG INJ VIAL SC SCH (14:45)
[2017-10-13] MEDS: metroNIDAZOLE 500MG/100ML 100 ML IV SCH ×2 (15:27→18:22)
[2017-10-13] MEDS: VANCOMYCIN HCL 500MG/5ML ORAL SOL PO SCH ×2 (18:22→22:22)
[2017-10-13] MEDS ORDERED: FAMOTIDINE 20 MG TAB PO SCH (22:00)
[2017-10-13] MEDS: METOPROLOL TARTRATE 25 MG TAB PO SCH (22:23)
[2017-10-14] VITALS (7 sets, daily range): BP systolic 136–158; BP diastolic 76–96
[2017-10-14 05:37] LABS: Basophils # (auto) 0 uL; Eosinophils # (auto) 0 uL; Lymphocytes # (auto) 0 uL; Monocytes # (auto) 0.2 uL; Neutrophils # (auto) 1.2 uL
[2017-10-14 05:40] LABS: Basophils % (auto) 0.5 % (0.0-2.0); Eosinophils % (auto) 0.4 % (0.0-7.0); Hematocrit 26.7 % (36.0-46.0); Lymphocytes % (auto) 1.8 % (10.0-50.0); Mean Corpuscular Hemoglobin 30.3 pg (28.0-32.0); Mean Corpuscular Hgb Conc. 33.8 g/dL (32.0-36.0); Mean Corpuscular Volume 89.6 fL (80.0-100.0); Monocytes % (auto) 15.8 % (0.0-12.0); Neutrophils % (auto) 81.5 % (37.0-80.0); Nucleated Red Blood Cells % 2.6 %; Platelet Count (auto) 116 10^3/uL (140-450); Red Blood Cells 2.99 10^6/uL (4.0-5.20)
[2017-10-14 05:42] LABS: Red Cell Distribution Width 22.2 % (11.8-14.3)
[2017-10-14 05:44] LABS: White Blood Cell 1.5 10^3/uL (4.4-10.8)
[2017-10-14] MEDS: metroNIDAZOLE 500MG/100ML 100 ML IV SCH ×4 (06:01→17:31)
[2017-10-14] MEDS: SODIUM CHLOR 0.9% PF (SALINE LOCK) 10ML VIAL IV SCH ×3 (06:01→22:00)
[2017-10-14] MEDS: ACYCLOVIR SOD 50MG/ML 500 MG in D5W 5% 100 ML IV SCH (06:01)
[2017-10-14] MEDS: VANCOMYCIN HCL 500MG/5ML ORAL SOL PO SCH ×4 (06:10→22:00)
[2017-10-14] MEDS: ALBUTEROL SULF 2.5 MG/0.5ML(0.5%) NEB SOLN NEB SCH ×3 (07:28→18:47)
[2017-10-14] MEDS: FAMOTIDINE 20 MG TAB PO SCH (10:04)
[2017-10-14] MEDS: METOPROLOL TARTRATE 25 MG TAB PO SCH ×2 (10:04→23:03)
[2017-10-14] MEDS: predniSONE 20 MG TAB PO SCH (10:04)
[2017-10-14] MEDS: FILGRASTIM 480 MCG INJ VIAL SC SCH (10:04)
[2017-10-14] MEDS: ACETAMINOPHEN 500 MG TAB PO PRN (10:14)
[2017-10-14] MEDS: SODIUM CHLORIDE 0.9% 1,000 ML IV SCH ×2 (15:02)
[2017-10-15] MEDS: metroNIDAZOLE 500MG/100ML 100 ML IV SCH ×5 (00:20→22:06)
[2017-10-15] MEDS: SODIUM CHLORIDE 0.9% 1,000 ML IV SCH ×2 (01:00→15:10)
[2017-10-15 05:15] VITALS: BP 149/90
[2017-10-15 06:02] LABS: Basophils # (auto) 0 uL; Basophils % (auto) 0.3 % (0.0-2.0); Eosinophils # (auto) 0 uL; Eosinophils % (auto) 0.2 % (0.0-7.0); Hematocrit 25.7 % (36.0-46.0); Hemoglobin 8.7 g/dL (12.2-16.2); Lymphocytes # (auto) 0 uL; Lymphocytes % (auto) 1.3 % (10.0-50.0); Mean Corpuscular Hemoglobin 30.1 pg (28.0-32.0); Mean Corpuscular Volume 88.6 fL (80.0-100.0); Monocytes # (auto) 0.4 uL; Monocytes % (auto) 12.9 % (0.0-12.0); Neutrophils # (auto) 2.6 uL; Neutrophils % (auto) 85.3 % (37.0-80.0); Nucleated Red Blood Cells % 1.6 %; Platelet Count (auto) 98 10^3/uL (140-450)
[2017-10-15 06:18] LABS: Red Cell Distribution Width 22.3 % (11.8-14.3)
[2017-10-15] MEDS: SODIUM CHLOR 0.9% PF (SALINE LOCK) 10ML VIAL IV SCH ×3 (06:19→22:00)
[2017-10-15] MEDS: VANCOMYCIN HCL 500MG/5ML ORAL SOL PO SCH ×4 (06:19→22:00)
[2017-10-15] MEDS: ALBUTEROL SULF 2.5 MG/0.5ML(0.5%) NEB SOLN NEB SCH ×3 (06:33→18:00)
[2017-10-15 06:35] LABS: BUN/Creatinine Ratio 4.2; Calcium 7.5 mg/dL (8.5-10.1); Potassium 3.2 mmol/L (3.5-5.1)
[2017-10-15 09:00] VITALS: BP 131/70
[2017-10-15] MEDS: predniSONE 20 MG TAB PO SCH (09:47)
[2017-10-15] MEDS: FAMOTIDINE 20 MG TAB PO SCH (09:47)
[2017-10-15] MEDS: METOPROLOL TARTRATE 25 MG TAB PO SCH ×2 (09:48→22:07)
[2017-10-15] MEDS: FILGRASTIM 480 MCG INJ VIAL SC SCH (09:48)
[2017-10-15] MEDS: PRO-STAT 64 30ML PO SCH (10:00)
[2017-10-15] MEDS: NYSTATIN (MOUTH-THROAT) 500,000 UNITS/5 ML SUSP MT SCH ×3 (11:28→22:06)
[2017-10-15] MEDS ORDERED: POTASSIUM CHL 20 Meq TABLET PO ONE (11:30)
[2017-10-15 13:05] VITALS: BP 160/86
[2017-10-15 17:00] VITALS: BP 144/89
[2017-10-15] MEDS: PROMETHAZINE HCL 25 MG/ML 1ML IV PRN (18:25)
[2017-10-16] MEDS: SODIUM CHLORIDE 0.9% 1,000 ML IV SCH ×2 (02:00→19:26)
[2017-10-16 05:00] VITALS: BP 146/83
[2017-10-16 06:08] LABS: Hemoglobin 8.8 g/dL (12.2-16.2); Mean Corpuscular Hemoglobin 30.2 pg (28.0-32.0); Mean Corpuscular Volume 88.7 fL (80.0-100.0); Platelet Count (auto) 86 10^3/uL (140-450); Red Blood Cells 2.93 10^6/uL (4.0-5.20); White Blood Cell 4.9 10^3/uL (4.4-10.8)
[2017-10-16 06:15] LABS: Red Cell Distribution Width 22.6 % (11.8-14.3)
[2017-10-16 06:16] LABS: Band Neutrophils % (manual) 0; Basophils % (manual) 0 (0.0-2.0); Blast Cells 0; Eosinophils % (manual) 0 (0-7); Metamyelocytes % 0; Myelocytes % 0; Promyelocytes % 0; Reactive Lymphocytes 0
[2017-10-16] MEDS: NYSTATIN (MOUTH-THROAT) 500,000 UNITS/5 ML SUSP MT SCH ×4 (06:26→21:40)
[2017-10-16] MEDS: metroNIDAZOLE 500MG/100ML 100 ML IV SCH ×4 (06:26→21:40)
[2017-10-16] MEDS: SODIUM CHLOR 0.9% PF (SALINE LOCK) 10ML VIAL IV SCH ×3 (06:27→21:44)
[2017-10-16] MEDS: VANCOMYCIN HCL 500MG/5ML ORAL SOL PO SCH ×4 (06:27→21:45)
[2017-10-16 06:31] LABS: Calcium 7.6 mg/dL (8.5-10.1); Potassium 3.2 mmol/L (3.5-5.1)
[2017-10-16 06:36] LABS: BUN/Creatinine Ratio 4.2
[2017-10-16] MEDS: ALBUTEROL SULF 2.5 MG/0.5ML(0.5%) NEB SOLN NEB SCH ×4 (06:42→18:53)
[2017-10-16 08:05] VITALS: BP 151/89
[2017-10-16] MEDS: METOPROLOL TARTRATE 25 MG TAB PO SCH ×2 (10:13→21:40)
[2017-10-16] MEDS: FAMOTIDINE 20 MG TAB PO SCH (10:13)
[2017-10-16] MEDS: predniSONE 20 MG TAB PO SCH (10:14)
[2017-10-16] MEDS: PRO-STAT 64 30ML PO SCH (10:15)
[2017-10-16 10:53] LABS: Lymphocytes % (manual) 2 (10.0-50.0); Monocytes % (manual) 5 (0-12)
[2017-10-16 12:12] VITALS: BP 155/83
[2017-10-16 13:47] LABS: Creatinine Clearance, Urine 18.6 mL/min (75-115); Creatinine, Urine 61.8 mg/dL (30.0-125.0)
[2017-10-16] MEDS ORDERED: HEPARIN SODIUM (PORCINE) 5000 UNITS/ML 1ML VIAL SC ONE (16:15)
[2017-10-16] MEDS ORDERED: EPOETIN ALFA 10,000 UNIT/1 ML VIAL IV ONE (16:15)
[2017-10-16] MEDS ORDERED: HEPARIN 1,000 UNITS/ml 1ML VIAL IV ONE (16:15)
[2017-10-16 17:20] VITALS: BP 145/95
[2017-10-16 21:41] VITALS: BP 151/91
[2017-10-16] MEDS: ACETAMINOPHEN 500 MG TAB PO PRN (21:51)
[2017-10-17] MEDS: SODIUM CHLORIDE 0.9% 1,000 ML IV SCH ×3 (03:00→18:06)
[2017-10-17] MEDS: metroNIDAZOLE 500MG/100ML 100 ML IV SCH ×4 (04:47→23:26)
[2017-10-17] MEDS: NYSTATIN (MOUTH-THROAT) 500,000 UNITS/5 ML SUSP MT SCH ×4 (04:52→21:12)
[2017-10-17] MEDS: SODIUM CHLOR 0.9% PF (SALINE LOCK) 10ML VIAL IV SCH ×3 (04:52→22:00)
[2017-10-17] MEDS: VANCOMYCIN HCL 500MG/5ML ORAL SOL PO SCH ×4 (04:53→21:12)
[2017-10-17 05:17] VITALS: BP 149/86
[2017-10-17] MEDS: ACETAMINOPHEN 500 MG TAB PO PRN ×2 (06:22→18:03)
[2017-10-17] MEDS: ALBUTEROL SULF 2.5 MG/0.5ML(0.5%) NEB SOLN NEB SCH ×4 (07:10→18:00)
[2017-10-17 07:37] LABS: Basophils # (auto) 0 uL; Basophils % (auto) 0.2 % (0.0-2.0); Eosinophils # (auto) 0 uL; Eosinophils % (auto) 0.1 % (0.0-7.0); Hematocrit 26.2 % (36.0-46.0); Hemoglobin 8.9 g/dL (12.2-16.2); Lymphocytes # (auto) 0.1 uL; Lymphocytes % (auto) 1.2 % (10.0-50.0); Mean Corpuscular Hemoglobin 30.3 pg (28.0-32.0); Mean Corpuscular Hgb Conc. 33.8 g/dL (32.0-36.0); Mean Corpuscular Volume 89.6 fL (80.0-100.0); Monocytes # (auto) 0.7 uL; Monocytes % (auto) 8.1 % (0.0-12.0); Neutrophils # (auto) 7.8 uL; Neutrophils % (auto) 90.4 % (37.0-80.0); Nucleated Red Blood Cells % 0.4 %; Platelet Count (auto) 86 10^3/uL (140-450); Red Blood Cells 2.92 10^6/uL (4.0-5.20); White Blood Cell 8.6 10^3/uL (4.4-10.8)
[2017-10-17 07:49] LABS: Red Cell Distribution Width 23.2 % (11.8-14.3)
[2017-10-17 07:51] LABS: Albumin 2.1 g/dL (3.4-5.0); BUN/Creatinine Ratio 3.2; Calcium 7.3 mg/dL (8.5-10.1); Potassium 3.2 mmol/L (3.5-5.1)
[2017-10-17 07:54] LABS: Bilirubin, Total 0.6 mg/dL (0.2-1.0); Total Protein 4.9 g/dL (6.4-8.2)
[2017-10-17 10:15] VITALS: BP 165/88
[2017-10-17] MEDS: FAMOTIDINE 20 MG TAB PO SCH (10:28)
[2017-10-17] MEDS: METOPROLOL TARTRATE 25 MG TAB PO SCH ×2 (10:28→23:25)
[2017-10-17] MEDS: predniSONE 20 MG TAB PO SCH (10:28)
[2017-10-17] MEDS: PRO-STAT 64 30ML PO SCH (10:30)
[2017-10-17 12:22] VITALS: BP 160/93
[2017-10-17] MEDS ORDERED: POTASSIUM CHL 20 Meq TABLET PO ONE (15:00)
[2017-10-17] MEDS: Novasource Renal 8 Ounces PO SCH (18:00)
[2017-10-17 21:58] VITALS: BP 150/83
[2017-10-18] VITALS (8 sets, daily range): BP systolic 115–141; BP diastolic 76–104
[2017-10-18] MEDS ORDERED: METOPROLOL TARTRATE 1MG/1ML-5ML VIAL IV ONE ×2 (01:21→01:30)
[2017-10-18] MEDS: METOPROLOL TARTRATE 25 MG TAB PO SCH ×2 (01:32→22:17)
[2017-10-18] MEDS ORDERED: MORPHINE SULFATE 4 MG/ML SYR/VIAL IV PRN (02:15)
[2017-10-18] MEDS ORDERED: MORPHINE SULFATE 4 MG/ML SYR/VIAL IM ONE (02:15)
[2017-10-18] MEDS: ACETAMINOPHEN 500 MG TAB PO PRN ×4 (05:01→22:39)
[2017-10-18] MEDS: metroNIDAZOLE 500MG/100ML 100 ML IV SCH ×4 (05:01→23:21)
[2017-10-18] MEDS: NYSTATIN (MOUTH-THROAT) 500,000 UNITS/5 ML SUSP MT SCH ×4 (05:01→22:16)
[2017-10-18] MEDS: VANCOMYCIN HCL 500MG/5ML ORAL SOL PO SCH ×4 (05:01→22:17)
[2017-10-18] MEDS: SODIUM CHLOR 0.9% PF (SALINE LOCK) 10ML VIAL IV SCH ×3 (06:09→22:16)
[2017-10-18] MEDS: ALBUTEROL SULF 2.5 MG/0.5ML(0.5%) NEB SOLN NEB SCH ×4 (07:42→18:45)
[2017-10-18] MEDS: Novasource Renal 8 Ounces PO SCH ×3 (08:00→17:16)
[2017-10-18] MEDS: FAMOTIDINE 20 MG TAB PO SCH (09:44)
[2017-10-18] MEDS: predniSONE 20 MG TAB PO SCH (09:44)
[2017-10-18] MEDS: PRO-STAT 64 30ML PO SCH (09:57)
[2017-10-18] MEDS ORDERED: METOPROLOL TARTRATE 25 MG TAB PO ONE (10:00)
[2017-10-18] MEDS ORDERED: HEPARIN SODIUM (PORCINE) 5000 UNITS/ML 1ML VIAL IV ONE (11:45)
[2017-10-18] MEDS ORDERED: EPOETIN ALFA 10,000 UNIT/1 ML VIAL IV ONE (11:45)
[2017-10-18] MEDS: SODIUM CHLORIDE 0.9% 1,000 ML IV SCH (17:16)
[2017-10-19] MEDS: ALBUTEROL SULF 2.5 MG/0.5ML(0.5%) NEB SOLN NEB SCH ×4 (00:59→21:07)
[2017-10-19] MEDS: PROMETHAZINE HCL 25 MG/ML 1ML IV PRN (02:09)
[2017-10-19] MEDS ORDERED: IBUPROFEN 400 MG TAB PO ONE ×2 (02:14→02:15)
[2017-10-19 05:00] VITALS: BP 139/80
[2017-10-19] MEDS: SODIUM CHLORIDE 0.9% 1,000 ML IV SCH ×2 (05:00→09:00)
[2017-10-19] MEDS: SODIUM CHLOR 0.9% PF (SALINE LOCK) 10ML VIAL IV SCH ×3 (05:04→22:00)
[2017-10-19] MEDS: metroNIDAZOLE 500MG/100ML 100 ML IV SCH ×3 (05:04→17:43)
[2017-10-19] MEDS: VANCOMYCIN HCL 500MG/5ML ORAL SOL PO SCH ×4 (05:05→22:00)
[2017-10-19] MEDS: NYSTATIN (MOUTH-THROAT) 500,000 UNITS/5 ML SUSP MT SCH ×4 (05:05→22:36)
[2017-10-19 05:22] LABS: Basophils # (auto) 0 uL; Basophils % (auto) 0.3 % (0.0-2.0); Eosinophils # (auto) 0 uL; Eosinophils % (auto) 0.1 % (0.0-7.0); Hemoglobin 8.4 g/dL (12.2-16.2); Lymphocytes # (auto) 0.1 uL; Lymphocytes % (auto) 2.6 % (10.0-50.0); Monocytes # (auto) 0.6 uL; Neutrophils # (auto) 3.9 uL; Platelet Count (auto) 69 10^3/uL (140-450)
[2017-10-19 05:25] LABS: Hematocrit 25.2 % (36.0-46.0); Mean Corpuscular Hemoglobin 30.1 pg (28.0-32.0); Mean Corpuscular Hgb Conc. 33.4 g/dL (32.0-36.0); Mean Corpuscular Volume 90.3 fL (80.0-100.0); Monocytes % (auto) 13.5 % (0.0-12.0); Neutrophils % (auto) 83.5 % (37.0-80.0); Nucleated Red Blood Cells % 1.5 %; Red Blood Cells 2.79 10^6/uL (4.0-5.20); White Blood Cell 4.7 10^3/uL (4.4-10.8)
[2017-10-19 05:28] LABS: Red Cell Distribution Width 23.5 % (11.8-14.3)
[2017-10-19 05:38] LABS: BUN/Creatinine Ratio 4.9; Calcium 7.1 mg/dL (8.5-10.1); Potassium 3.4 mmol/L (3.5-5.1)
[2017-10-19] MEDS: Novasource Renal 8 Ounces PO SCH ×3 (08:00→17:42)
[2017-10-19 09:00] VITALS: BP 125/77
[2017-10-19] MEDS: FAMOTIDINE 20 MG TAB PO SCH (10:19)
[2017-10-19] MEDS: PRO-STAT 64 30ML PO SCH (10:19)
[2017-10-19] MEDS: predniSONE 20 MG TAB PO SCH (10:19)
[2017-10-19] MEDS: METOPROLOL TARTRATE 25 MG TAB PO SCH ×2 (10:19→22:37)
[2017-10-19 13:00] VITALS: BP 121/85
[2017-10-19] MEDS: ACETAMINOPHEN 500 MG TAB PO PRN (14:16)
[2017-10-19 18:11] VITALS: BP 125/87
[2017-10-19] MEDS: guaiFENesin-COD 10 ML UD PO PRN ×2 (18:28→22:37)
[2017-10-19 22:00] VITALS: BP 135/93
[2017-10-20] MEDS: metroNIDAZOLE 500MG/100ML 100 ML IV SCH ×5 (01:29→23:26)
[2017-10-20] MEDS: ALBUTEROL SULF 2.5 MG/0.5ML(0.5%) NEB SOLN NEB SCH ×4 (01:29→19:34)
[2017-10-20] MEDS: guaiFENesin-COD 10 ML UD PO PRN ×4 (02:43→21:43)
[2017-10-20 05:00] VITALS: BP 171/112
[2017-10-20] MEDS: SODIUM CHLORIDE 0.9% 1,000 ML IV SCH ×2 (05:13→23:26)
[2017-10-20] MEDS: SODIUM CHLOR 0.9% PF (SALINE LOCK) 10ML VIAL IV SCH ×3 (05:51→21:47)
[2017-10-20] MEDS: NYSTATIN (MOUTH-THROAT) 500,000 UNITS/5 ML SUSP MT SCH ×4 (06:00→21:43)
[2017-10-20] MEDS: VANCOMYCIN HCL 500MG/5ML ORAL SOL PO SCH ×4 (06:00→21:47)
[2017-10-20] MEDS: ACETAMINOPHEN 500 MG TAB PO PRN (06:01)
[2017-10-20 08:00] VITALS: BP 122/79
[2017-10-20] MEDS: Novasource Renal 8 Ounces PO SCH ×3 (08:04→18:01)
[2017-10-20] MEDS: FAMOTIDINE 20 MG TAB PO SCH (09:40)
[2017-10-20] MEDS: METOPROLOL TARTRATE 25 MG TAB PO SCH ×2 (09:40→21:43)
[2017-10-20] MEDS: predniSONE 20 MG TAB PO SCH (09:40)
[2017-10-20] MEDS: PRO-STAT 64 30ML PO SCH (09:41)
[2017-10-20 09:59] LABS: BUN/Creatinine Ratio 7.4; Calcium 7.5 mg/dL (8.5-10.1); Potassium 3.8 mmol/L (3.5-5.1)
[2017-10-20 12:00] VITALS: BP 126/91
[2017-10-20] MEDS ORDERED: VANCOMYCIN 1GM/250ML 250 ML IV ONE (12:00)
[2017-10-20] MEDS ORDERED: CEFEPIME HYDROCHLORIDE 2 GM in SODIUM CHL 0.9% 50 ML IV ONE (12:00)
[2017-10-20 17:00] VITALS: BP 149/100
[2017-10-20 20:00] VITALS: BP 136/86
[2017-10-20 22:09] VITALS: BP 136/86
[2017-10-21] VITALS (7 sets, daily range): BP systolic 123–140; BP diastolic 78–95
[2017-10-21] MEDS: ALBUTEROL SULF 2.5 MG/0.5ML(0.5%) NEB SOLN NEB SCH ×4 (00:36→18:00)
[2017-10-21] MEDS: guaiFENesin-COD 10 ML UD PO PRN ×3 (01:26→10:11)
[2017-10-21 05:28] LABS: Basophils # (auto) 0 uL; Eosinophils # (auto) 0 uL; Eosinophils % (auto) 0.2 % (0.0-7.0); Lymphocytes # (auto) 0.4 uL; Lymphocytes % (auto) 7.2 % (10.0-50.0); Monocytes # (auto) 0.5 uL; Nucleated Red Blood Cells % 2.8 %
[2017-10-21 05:30] LABS: Basophils % (auto) 0.3 % (0.0-2.0); Hematocrit 23.6 % (36.0-46.0); Hemoglobin 7.8 g/dL (12.2-16.2); Mean Corpuscular Hgb Conc. 33.2 g/dL (32.0-36.0); Mean Corpuscular Volume 90.4 fL (80.0-100.0); Monocytes % (auto) 9.8 % (0.0-12.0); Neutrophils # (auto) 4.2 uL; Neutrophils % (auto) 82.5 % (37.0-80.0); Platelet Count (auto) 54 10^3/uL (140-450); Red Blood Cells 2.61 10^6/uL (4.0-5.20)
[2017-10-21 05:42] LABS: BUN/Creatinine Ratio 9.7; Calcium 7.5 mg/dL (8.5-10.1); Potassium 3.9 mmol/L (3.5-5.1)
[2017-10-21 05:44] LABS: Red Cell Distribution Width 24.2 % (11.8-14.3)
[2017-10-21] MEDS: metroNIDAZOLE 500MG/100ML 100 ML IV SCH ×4 (06:13→23:17)
[2017-10-21] MEDS: VANCOMYCIN HCL 500MG/5ML ORAL SOL PO SCH ×4 (06:13→21:54)
[2017-10-21] MEDS: NYSTATIN (MOUTH-THROAT) 500,000 UNITS/5 ML SUSP MT SCH ×4 (06:13→21:52)
[2017-10-21] MEDS: SODIUM CHLOR 0.9% PF (SALINE LOCK) 10ML VIAL IV SCH ×3 (06:13→21:54)
[2017-10-21] MEDS: SODIUM CHLORIDE 0.9% 1,000 ML IV SCH ×2 (06:41→19:30)
[2017-10-21] MEDS: Novasource Renal 8 Ounces PO SCH ×3 (08:00→18:00)
[2017-10-21] MEDS: PRO-STAT 64 30ML PO SCH (10:00)
[2017-10-21] MEDS: FAMOTIDINE 20 MG TAB PO SCH (10:07)
[2017-10-21] MEDS: METOPROLOL TARTRATE 25 MG TAB PO SCH ×2 (10:07→21:54)
[2017-10-21] MEDS: predniSONE 20 MG TAB PO SCH (10:07)
[2017-10-22] VITALS (8 sets, daily range): BP systolic 131–150; BP diastolic 79–96
[2017-10-22] MEDS: ALBUTEROL SULF 2.5 MG/0.5ML(0.5%) NEB SOLN NEB SCH ×4 (00:14→19:31)
[2017-10-22] MEDS: guaiFENesin-COD 10 ML UD PO PRN ×2 (01:49→22:03)
[2017-10-22] MEDS ORDERED: SODIUM CHL 0.9% 1000 ML BAG XX ONE (04:00)
[2017-10-22] MEDS ORDERED: EPOETIN ALFA 10,000 UNIT/1 ML VIAL IV ONE (04:00)
[2017-10-22 05:50] LABS: Basophils # (auto) 0 uL; Basophils % (auto) 0.2 % (0.0-2.0); Eosinophils # (auto) 0 uL; Eosinophils % (auto) 0.2 % (0.0-7.0); Lymphocytes # (auto) 0.5 uL; Monocytes # (auto) 0.5 uL; Neutrophils # (auto) 6.1 uL
[2017-10-22 05:53] LABS: Hematocrit 23.1 % (36.0-46.0); Hemoglobin 7.9 g/dL (12.2-16.2); Mean Corpuscular Hemoglobin 30.5 pg (28.0-32.0); Mean Corpuscular Hgb Conc. 34.4 g/dL (32.0-36.0); Mean Corpuscular Volume 88.7 fL (80.0-100.0); Neutrophils % (auto) 85.6 % (37.0-80.0); Nucleated Red Blood Cells % 2.6 %; Platelet Count (auto) 51 10^3/uL (140-450); White Blood Cell 7.2 10^3/uL (4.4-10.8)
[2017-10-22 05:55] LABS: % Iron Saturation 112.1 % (15-50)
[2017-10-22 05:59] LABS: BUN/Creatinine Ratio 11.3; Calcium 7.8 mg/dL (8.5-10.1); Potassium 3.7 mmol/L (3.5-5.1)
[2017-10-22] MEDS: VANCOMYCIN HCL 500MG/5ML ORAL SOL PO SCH ×4 (06:00→21:56)
[2017-10-22] MEDS: NYSTATIN (MOUTH-THROAT) 500,000 UNITS/5 ML SUSP MT SCH ×4 (06:00→21:54)
[2017-10-22] MEDS: SODIUM CHLOR 0.9% PF (SALINE LOCK) 10ML VIAL IV SCH ×3 (06:00→21:54)
[2017-10-22] MEDS: metroNIDAZOLE 500MG/100ML 100 ML IV SCH ×4 (06:00→23:39)
[2017-10-22 06:30] LABS: Red Cell Distribution Width 23.8 % (11.8-14.3)
[2017-10-22] MEDS: SODIUM CHLORIDE 0.9% 1,000 ML IV SCH ×2 (08:00→21:55)
[2017-10-22] MEDS: Novasource Renal 8 Ounces PO SCH ×3 (08:00→18:00)
[2017-10-22] MEDS: FAMOTIDINE 20 MG TAB PO SCH ×2 (10:00→17:15)
[2017-10-22] MEDS: PRO-STAT 64 30ML PO SCH (10:00)
[2017-10-22] MEDS: predniSONE 20 MG TAB PO SCH (10:00)
[2017-10-22] MEDS: METOPROLOL TARTRATE 25 MG TAB PO SCH ×3 (10:00→21:53)
[2017-10-22] MEDS ORDERED: CATHFLO ACTIVASE (ALTEPLASE) 2 MG VIAL IV ONE ×2 (14:45)
[2017-10-22] MEDS: ACETAMINOPHEN 500 MG TAB PO PRN (22:03)
[2017-10-23 05:47] VITALS: BP 136/95
[2017-10-23] MEDS: metroNIDAZOLE 500MG/100ML 100 ML IV SCH ×3 (05:58→18:00)
[2017-10-23] MEDS: NYSTATIN (MOUTH-THROAT) 500,000 UNITS/5 ML SUSP MT SCH ×3 (05:58→18:00)
[2017-10-23] MEDS: SODIUM CHLOR 0.9% PF (SALINE LOCK) 10ML VIAL IV SCH ×2 (05:59→14:00)
[2017-10-23] MEDS: VANCOMYCIN HCL 500MG/5ML ORAL SOL PO SCH ×3 (05:59→18:00)
[2017-10-23] MEDS: ALBUTEROL SULF 2.5 MG/0.5ML(0.5%) NEB SOLN NEB SCH ×4 (06:00→17:24)
[2017-10-23 07:15] LABS: Potassium 3.9 mmol/L (3.5-5.1)
[2017-10-23 07:20] LABS: BUN/Creatinine Ratio 11.8; Calcium 7.8 mg/dL (8.5-10.1)
[2017-10-23] MEDS: Novasource Renal 8 Ounces PO SCH ×3 (08:00→18:00)
[2017-10-23 08:33] VITALS: BP 135/90
[2017-10-23] MEDS: SODIUM CHLORIDE 0.9% 1,000 ML IV SCH (09:00)
[2017-10-23] MEDS: FAMOTIDINE 20 MG TAB PO SCH (09:39)
[2017-10-23] MEDS: METOPROLOL TARTRATE 25 MG TAB PO SCH (09:40)
[2017-10-23] MEDS: PRO-STAT 64 30ML PO SCH (09:40)
[2017-10-23] MEDS: predniSONE 20 MG TAB PO SCH (09:40)
[2017-10-23 12:49] VITALS: BP 150/91
[2017-10-23 15:54] VITALS: BP 150/91
[2017-10-23 17:00] VITALS: BP 143/88
== END 2017-10-23 19:15 | disposition home or self-care (01) | DRG 720 ==
LOC: ER 11:24 → TELE 11:25 → TELE-CENTR 20:20
PROVIDERS: ADMIT Internal Medicine; ATTEND Internal Medicine Pulmonary Disease
PROC: 30233N1 Transfusion of Nonautologous Red Blood Cells into Peripheral Vein, Percutaneous Approach (ICD-10-PCS; principal; 2017-10-10)
PROC: 5A1D70Z Performance of Urinary Filtration, Intermittent, Less than 6 Hours Per Day (ICD-10-PCS; 2017-10-11)
PROC: 5A1D70Z Performance of Urinary Filtration, Intermittent, Less than 6 Hours Per Day (ICD-10-PCS; 2017-10-12)
PROC: 5A1D70Z Performance of Urinary Filtration, Intermittent, Less than 6 Hours Per Day (ICD-10-PCS; 2017-10-16)
PROC: 5A1D70Z Performance of Urinary Filtration, Intermittent, Less than 6 Hours Per Day (ICD-10-PCS; 2017-10-22)
DX: A41.9 Sepsis, unspecified organism (principal); E43 Unspecified severe protein-calorie malnutrition; D61.810 Antineoplastic chemotherapy induced pancytopenia; N17.9 Acute kidney failure, unspecified; A04.72 Enterocolitis due to Clostridium difficile, not specified as recurrent; N18.6 End stage renal disease; I12.0 Hypertensive chronic kidney disease with stage 5 chronic kidney disease or end stage renal disease; N12 Tubulo-interstitial nephritis, not specified as acute or chronic; Z99.2 Dependence on renal dialysis; K21.9 Gastro-esophageal reflux disease without esophagitis; D63.8 Anemia in other chronic diseases classified elsewhere; E78.5 Hyperlipidemia, unspecified; E87.6 Hypokalemia; I77.6 Arteritis, unspecified; J45.909 Unspecified asthma, uncomplicated; T45.1X5A Adverse effect of antineoplastic and immunosuppressive drugs, initial encounter; Z79.52 Long term (current) use of systemic steroids; Z79.899 Other long term (current) drug therapy; Z82.49 Family history of ischemic heart disease and other diseases of the circulatory system; Z90.49 Acquired absence of other specified parts of digestive tract; Z90.710 Acquired absence of both cervix and uterus; E66.01 Morbid (severe) obesity due to excess calories; Z88.5 Allergy status to narcotic agent; Z88.8 Allergy status to other drugs, medicaments and biological substances
CPT/HCPCS: 36415; 71010; 71046; 74176; 80048; 80053; 80061; 80202; 81001; 82270; 82550; 82570; 82575; 83540; 83550; 83605; 83735; 83880; 84156; 84443; 84484; 85007; 85014; 85018; 85025; 85027; 85045; 85652; 86850; 86900; 86901; 86920; 87040; 87070; 87081; 87086; 87177; 87205; 87400; 87493; 90935; 93005; 94640; 94644; 96361; 96365; 96372; 96375; J0885; J1442; J1642; J1956; J2543; J3490; J7060

== ENCOUNTER 2017-10-27 16:56 | Inpatient (IN) | payer MEDICAID ==
[~2017-10-27] VITALS: Ht 172.7 cm; Wt 74.4 kg
[~2017-10-27 16:56] MED LIST changes: +CYCL60CA PO
[2017-10-27 19:06] LABS: Hemoglobin 8.5 g/dL (12.2-16.2)
[2017-10-27 19:07] LABS: Hematocrit 26.4 % (36.0-46.0); Mean Corpuscular Hemoglobin 30.2 pg (28.0-32.0); Mean Corpuscular Hgb Conc. 32.2 g/dL (32.0-36.0); Mean Corpuscular Volume 93.7 fL (80.0-100.0); Platelet Count (auto) 53 10^3/uL (140-450); Red Blood Cells 2.82 10^6/uL (4.0-5.20)
[2017-10-27 19:22] LABS: Red Cell Distribution Width 25.6 % (11.8-14.3)
[2017-10-27 19:26] LABS: Band Neutrophils % (manual) 0; Basophils % (manual) 0 (0.0-2.0); Blast Cells 0; Eosinophils % (manual) 0 (0-7); Metamyelocytes % 0; Myelocytes % 0; Promyelocytes % 0; Reactive Lymphocytes 0
[2017-10-27 19:58] LABS: Lymphocytes % (manual) 12 (10.0-50.0); Monocytes % (manual) 3 (0-12)
[2017-10-27 20:05] LABS: White Blood Cell 7.9 10^3/uL (4.4-10.8)
[2017-10-27 20:39] LABS: BUN/Creatinine Ratio 10.8; Potassium 3.7 mmol/L (3.5-5.1)
[2017-10-27 20:40] LABS: Albumin 2.3 g/dL (3.4-5.0); Bilirubin, Total 1.4 mg/dL (0.2-1.0); Calcium 7.3 mg/dL (8.5-10.1); Total Protein 6.4 g/dL (6.4-8.2)
[2017-10-28] MEDS ORDERED: SODIUM CHLORIDE 0.9% 1,000 ML IV ONE (00:04)
[2017-10-28 01:06] LABS: Magnesium 2.2 mg/dL (1.6-2.6)
[2017-10-28 01:07] LABS: Lactic Acid w/Reflex 2.1 mmol/L (0.4-2.0)
[2017-10-28] MEDS ORDERED: MORPHINE SULF INJ 2 MG/ML SYRINGE 1ML IV PRN (01:30)
[2017-10-28] MEDS ORDERED: ALBUTEROL SULF 2.5 MG/0.5ML(0.5%) NEB SOLN NEB PRN ×2 (01:30)
[2017-10-28] MEDS ORDERED: NITROGLYCERIN 0.4 MG SL TAB SL PRN (01:30)
[2017-10-28] MEDS ORDERED: ONDANSETRON HCL 4 MG/2 ML VIAL IV PRN (01:30)
[2017-10-28] MEDS ORDERED: cefTRIAXone 1GM/10ml IVPUSH 10 ML IV ONE (01:45)
[2017-10-28] MEDS ORDERED: AZITHROMYCIN 500MG/ 250ML 250 ML IV ONE (01:45)
[2017-10-28] MEDS: FUROSEMIDE 40 MG TAB PO SCH ×2 (06:20→17:03)
[2017-10-28] MEDS: FERROUS SULFATE 325 MG TAB PO SCH ×2 (08:49→17:03)
[2017-10-28 09:25] VITALS: BP 120/77
[2017-10-28] MEDS: PANTOPRAZOLE 40 MG TAB PO SCH (09:52)
[2017-10-28] MEDS: predniSONE 20 MG TAB PO SCH (09:52)
[2017-10-28] MEDS: METOPROLOL TARTRATE 25 MG TAB PO SCH ×2 (09:53→22:28)
[2017-10-28 10:00] VITALS: BP 124/81
[2017-10-28] MEDS ORDERED: PANTOPRAZOLE 40 MG TAB PO SCH (10:00)
[2017-10-28] MEDS ORDERED: amLODIPine BESYLATE 5 MG TAB PO SCH (10:00)
[2017-10-28] MEDS ORDERED: PROMETHAZINE-DM 5 ML ORAL SYRUP GT PRN (10:15)
[2017-10-28] MEDS: HEPARIN SODIUM (PORCINE) 5000 UNITS/ML 1ML VIAL SC SCH ×2 (10:42→22:30)
[2017-10-28] MEDS ORDERED: guaiFENesin-DM 100/10mg/5ml SYR GT PRN (12:00)
[2017-10-28] MEDS: ACETAMINOPHEN 325 MG TAB PO PRN ×2 (12:04→21:05)
[2017-10-28] MEDS: PROMETHAZINE-DM 5 ML ORAL SYRUP PO PRN ×3 (12:05→22:32)
[2017-10-28 13:00] VITALS: BP 123/73
[2017-10-28 16:55] VITALS: BP 106/67
[2017-10-28 22:00] VITALS: BP 110/62
[2017-10-28] MEDS: AZITHROMYCIN 500MG/ 250ML 250 ML IV SCH (22:27)
[2017-10-28] MEDS: cefTRIAXone 1GM/10ml IVPUSH 10 ML IV SCH (22:27)
[2017-10-29 05:00] VITALS: BP 109/63
[2017-10-29] MEDS: FUROSEMIDE 40 MG TAB PO SCH (05:28)
[2017-10-29] MEDS: PROMETHAZINE-DM 5 ML ORAL SYRUP PO PRN (05:47)
[2017-10-29 06:34] LABS: Basophils # (auto) 0 uL; Eosinophils # (auto) 0 uL; Eosinophils % (auto) 0.2 % (0.0-7.0); Lymphocytes # (auto) 0.2 uL; Monocytes # (auto) 0.6 uL; Neutrophils # (auto) 6.3 uL; White Blood Cell 7.2 10^3/uL (4.4-10.8)
[2017-10-29 06:37] LABS: Basophils % (auto) 0.3 % (0.0-2.0); Hemoglobin 8.3 g/dL (12.2-16.2); Lymphocytes % (auto) 2.5 % (10.0-50.0); Mean Corpuscular Hemoglobin 31.5 pg (28.0-32.0); Mean Corpuscular Hgb Conc. 33.1 g/dL (32.0-36.0); Mean Corpuscular Volume 94.9 fL (80.0-100.0); Platelet Count (auto) 50 10^3/uL (140-450); Red Blood Cells 2.63 10^6/uL (4.0-5.20)
[2017-10-29 06:52] LABS: Nucleated Red Blood Cells % 8.8 %; Red Cell Distribution Width 26.4 % (11.8-14.3)
[2017-10-29 07:03] LABS: BUN/Creatinine Ratio 11.9; Potassium 3.5 mmol/L (3.5-5.1)
[2017-10-29 07:05] LABS: Albumin 1.9 g/dL (3.4-5.0); Bilirubin, Total 0.6 mg/dL (0.2-1.0); Total Protein 5.8 g/dL (6.4-8.2)
[2017-10-29 08:00] VITALS: BP 104/67
[2017-10-29 09:23] VITALS: BP 107/64
[2017-10-29] MEDS ORDERED: ALBUTEROL SULF 2.5 MG/0.5ML(0.5%) NEB SOLN ONE (10:15)
[2017-10-29] MEDS: ALBUTEROL SULF 2.5 MG/0.5ML(0.5%) NEB SOLN NEB SCH ×5 (10:40→22:00)
[2017-10-29] MEDS: predniSONE 20 MG TAB PO SCH (11:11)
[2017-10-29] MEDS: PANTOPRAZOLE 40 MG TAB PO SCH (11:11)
[2017-10-29] MEDS: FERROUS SULFATE 325 MG TAB PO SCH ×2 (11:12→17:13)
[2017-10-29] MEDS: HEPARIN SODIUM (PORCINE) 5000 UNITS/ML 1ML VIAL SC SCH ×2 (12:53→22:08)
[2017-10-29 14:03] VITALS: BP 104/56
[2017-10-29 17:00] VITALS: BP 99/62
[2017-10-29] MEDS: ACETAMINOPHEN 325 MG TAB PO PRN (20:21)
[2017-10-29 21:57] VITALS: BP 102/71
[2017-10-29] MEDS: AZITHROMYCIN 500MG/ 250ML 250 ML IV SCH (22:07)
[2017-10-29] MEDS: cefTRIAXone 1GM/10ml IVPUSH 10 ML IV SCH (22:07)
[2017-10-30] MEDS: ALBUTEROL SULF 2.5 MG/0.5ML(0.5%) NEB SOLN NEB SCH ×6 (02:37→22:20)
[2017-10-30 02:41] VITALS: BP 102/71
[2017-10-30 05:12] VITALS: BP 123/84
[2017-10-30 06:33] LABS: Basophils # (auto) 0 uL; Basophils % (auto) 0.3 % (0.0-2.0); Eosinophils # (auto) 0 uL; Hemoglobin 7.7 g/dL (12.2-16.2); Lymphocytes # (auto) 0.4 uL; Mean Corpuscular Hgb Conc. 32.8 g/dL (32.0-36.0); Monocytes # (auto) 0.6 uL
[2017-10-30 06:37] LABS: Eosinophils % (auto) 0.1 % (0.0-7.0); Hematocrit 23.4 % (36.0-46.0); Lymphocytes % (auto) 5.9 % (10.0-50.0); Mean Corpuscular Hemoglobin 31.2 pg (28.0-32.0); Monocytes % (auto) 10.1 % (0.0-12.0); Neutrophils % (auto) 83.6 % (37.0-80.0); Platelet Count (auto) 56 10^3/uL (140-450); Red Blood Cells 2.47 10^6/uL (4.0-5.20)
[2017-10-30 06:46] LABS: Nucleated Red Blood Cells % 4.8 %; Red Cell Distribution Width 26.5 % (11.8-14.3)
[2017-10-30 06:48] LABS: BUN/Creatinine Ratio 12.9; Calcium 8.1 mg/dL (8.5-10.1); Potassium 3.4 mmol/L (3.5-5.1)
[2017-10-30] MEDS: FERROUS SULFATE 325 MG TAB PO SCH ×2 (08:00→18:07)
[2017-10-30] MEDS: PROMETHAZINE-DM 5 ML ORAL SYRUP PO PRN ×3 (08:01→23:55)
[2017-10-30 09:00] VITALS: BP 133/76
[2017-10-30] MEDS: HEPARIN SODIUM (PORCINE) 5000 UNITS/ML 1ML VIAL SC SCH (10:00)
[2017-10-30] MEDS: predniSONE 20 MG TAB PO SCH (10:37)
[2017-10-30] MEDS: PANTOPRAZOLE 40 MG TAB PO SCH (10:37)
[2017-10-30 13:00] VITALS: BP 124/70
[2017-10-30] MEDS: ACETAMINOPHEN 325 MG TAB PO PRN (14:56)
[2017-10-30 17:00] VITALS: BP 136/81
[2017-10-30] MEDS ORDERED: VANCOMYCIN PER PHARMACY 0 MG IV SCH (17:45)
[2017-10-30] MEDS ORDERED: VANCOMYCIN 1GM/250ML 250 ML IV ONE (18:30)
[2017-10-30] MEDS ORDERED: LEVOFLOXACIN 500MG 100 ML IV ONE (20:00)
[2017-10-30 22:00] VITALS: BP 124/79
[2017-10-31] MEDS: ALBUTEROL SULF 2.5 MG/0.5ML(0.5%) NEB SOLN NEB SCH ×6 (02:31→21:35)
[2017-10-31 05:26] VITALS: BP 134/67
[2017-10-31] MEDS: PROMETHAZINE-DM 5 ML ORAL SYRUP PO PRN ×3 (06:13→19:40)
[2017-10-31 06:26] LABS: Basophils # (auto) 0 uL; Eosinophils # (auto) 0 uL; Hemoglobin 7.3 g/dL (12.2-16.2); Lymphocytes # (auto) 0.3 uL; Neutrophils # (auto) 4.1 uL; Platelet Count (auto) 52 10^3/uL (140-450); White Blood Cell 4.9 10^3/uL (4.4-10.8)
[2017-10-31 06:29] LABS: Hematocrit 22.3 % (36.0-46.0); Lymphocytes % (auto) 6.7 % (10.0-50.0); Mean Corpuscular Hemoglobin 31.5 pg (28.0-32.0); Mean Corpuscular Hgb Conc. 32.9 g/dL (32.0-36.0); Mean Corpuscular Volume 95.5 fL (80.0-100.0); Monocytes # (auto) 0.5 uL; Monocytes % (auto) 9.4 % (0.0-12.0); Neutrophils % (auto) 83.9 % (37.0-80.0); Nucleated Red Blood Cells % 2.3 %; Red Blood Cells 2.33 10^6/uL (4.0-5.20)
[2017-10-31 06:31] LABS: Red Cell Distribution Width 27.9 % (11.8-14.3)
[2017-10-31 07:09] LABS: BUN/Creatinine Ratio 13.7; Calcium 7.6 mg/dL (8.5-10.1); Potassium 3.5 mmol/L (3.5-5.1)
[2017-10-31 07:12] LABS: Bilirubin, Total 0.6 mg/dL (0.2-1.0); Total Protein 5.7 g/dL (6.4-8.2)
[2017-10-31] MEDS: FERROUS SULFATE 325 MG TAB PO SCH (08:00)
[2017-10-31 09:00] VITALS: BP 100/54
[2017-10-31] MEDS: predniSONE 20 MG TAB PO SCH (10:53)
[2017-10-31] MEDS: PANTOPRAZOLE 40 MG TAB PO SCH (10:53)
[2017-10-31 13:00] VITALS: BP 126/65
[2017-10-31 16:54] VITALS: BP 135/80
[2017-10-31] MEDS: LEVOFLOXACIN 250MG 50 ML IV SCH (17:36)
[2017-10-31 22:00] VITALS: BP 127/79
[2017-10-31] MEDS: Suplena 8 ounce PO SCH (22:00)
[2017-10-31] MEDS: TEMAZEPAM 15 MG CAP PO PRN (22:02)
[2017-11-01] VITALS (10 sets, daily range): BP systolic 127–146; BP diastolic 65–94
[2017-11-01] MEDS: ALBUTEROL SULF 2.5 MG/0.5ML(0.5%) NEB SOLN NEB SCH ×5 (02:20→22:29)
[2017-11-01] MEDS ORDERED: PROMETHAZINE HCL 25 MG/ML 1ML ONE (06:15)
[2017-11-01] MEDS: ACETAMINOPHEN 325 MG TAB PO PRN (06:21)
[2017-11-01] MEDS: PROMETHAZINE-DM 5 ML ORAL SYRUP PO PRN ×2 (06:29→22:18)
[2017-11-01 08:09] LABS: Basophils # (auto) 0 uL; Eosinophils # (auto) 0 uL; Hemoglobin 7.1 g/dL (12.2-16.2); Lymphocytes # (auto) 0.2 uL; Neutrophils # (auto) 4.8 uL; Neutrophils % (auto) 87.2 % (37.0-80.0); White Blood Cell 5.5 10^3/uL (4.4-10.8)
[2017-11-01 08:11] LABS: Eosinophils % (auto) 0.2 % (0.0-7.0); Lymphocytes % (auto) 4.5 % (10.0-50.0); Mean Corpuscular Hgb Conc. 32.5 g/dL (32.0-36.0); Mean Corpuscular Volume 95.4 fL (80.0-100.0); Monocytes # (auto) 0.4 uL; Monocytes % (auto) 8.1 % (0.0-12.0); Nucleated Red Blood Cells % 0.4 %; Platelet Count (auto) 59 10^3/uL (140-450)
[2017-11-01 08:35] LABS: Albumin 1.9 g/dL (3.4-5.0); BUN/Creatinine Ratio 13.8; Calcium 7.3 mg/dL (8.5-10.1); Potassium 3.3 mmol/L (3.5-5.1)
[2017-11-01 08:38] LABS: Bilirubin, Total 0.7 mg/dL (0.2-1.0); Total Protein 5.6 g/dL (6.4-8.2)
[2017-11-01] MEDS: PANTOPRAZOLE 40 MG TAB PO SCH (10:40)
[2017-11-01] MEDS: predniSONE 20 MG TAB PO SCH (10:40)
[2017-11-01] MEDS: Suplena 8 ounce PO SCH ×2 (10:41→22:00)
[2017-11-01] MEDS ORDERED: VANCOMYCIN 1GM/250ML 250 ML IV ONE (16:00)
[2017-11-02] MEDS: PROMETHAZINE-DM 5 ML ORAL SYRUP PO PRN ×3 (04:40→20:26)
[2017-11-02] MEDS: ACETAMINOPHEN 325 MG TAB PO PRN ×2 (04:41→20:27)
[2017-11-02 05:00] VITALS: BP 160/80
[2017-11-02 05:47] LABS: Basophils # (auto) 0 uL; Eosinophils # (auto) 0 uL; Nucleated Red Blood Cells % 0.2 %; White Blood Cell 4.7 10^3/uL (4.4-10.8)
[2017-11-02 05:49] LABS: Basophils % (auto) 0.2 % (0.0-2.0); Hematocrit 23.5 % (36.0-46.0); Hemoglobin 7.9 g/dL (12.2-16.2); Lymphocytes # (auto) 0.3 uL; Mean Corpuscular Hemoglobin 31.1 pg (28.0-32.0); Mean Corpuscular Hgb Conc. 33.4 g/dL (32.0-36.0); Mean Corpuscular Volume 93.2 fL (80.0-100.0); Monocytes # (auto) 0.4 uL; Monocytes % (auto) 8.9 % (0.0-12.0); Neutrophils % (auto) 83.9 % (37.0-80.0); Platelet Count (auto) 63 10^3/uL (140-450); Red Blood Cells 2.52 10^6/uL (4.0-5.20)
[2017-11-02 05:52] LABS: Red Cell Distribution Width 24.8 % (11.8-14.3)
[2017-11-02 06:04] LABS: Albumin 1.9 g/dL (3.4-5.0); BUN/Creatinine Ratio 13.7; Bilirubin, Total 0.7 mg/dL (0.2-1.0); Phosphorus 5.7 mg/dL (2.5-4.90); Potassium 3.5 mmol/L (3.5-5.1); Total Protein 5.5 g/dL (6.4-8.2)
[2017-11-02] MEDS: ALBUTEROL SULF 2.5 MG/0.5ML(0.5%) NEB SOLN NEB SCH ×5 (06:27→22:37)
[2017-11-02 08:00] VITALS: BP 136/80
[2017-11-02 09:00] VITALS: BP 136/80
[2017-11-02] MEDS: predniSONE 20 MG TAB PO SCH (10:40)
[2017-11-02] MEDS: PANTOPRAZOLE 40 MG TAB PO SCH (10:41)
[2017-11-02] MEDS: Suplena 8 ounce PO SCH ×2 (10:41→22:00)
[2017-11-02 13:00] VITALS: BP 136/82
[2017-11-02 17:00] VITALS: BP 136/98
[2017-11-02] MEDS: LEVOFLOXACIN 250MG 50 ML IV SCH (17:00)
[2017-11-02 22:00] VITALS: BP 137/90
[2017-11-02] MEDS: TEMAZEPAM 15 MG CAP PO PRN (22:28)
[2017-11-03] MEDS: PROMETHAZINE-DM 5 ML ORAL SYRUP PO PRN ×5 (02:57→22:13)
[2017-11-03] MEDS: ALBUTEROL SULF 2.5 MG/0.5ML(0.5%) NEB SOLN NEB SCH ×5 (06:23→19:07)
[2017-11-03] MEDS: ACETAMINOPHEN 325 MG TAB PO PRN ×2 (06:23→17:55)
[2017-11-03 08:35] LABS: Basophils # (auto) 0 uL; Eosinophils # (auto) 0 uL; Lymphocytes # (auto) 0.3 uL; Platelet Count (auto) 81 10^3/uL (140-450)
[2017-11-03 08:36] LABS: Basophils % (auto) 0.3 % (0.0-2.0); Eosinophils % (auto) 0.4 % (0.0-7.0); Hemoglobin 8.3 g/dL (12.2-16.2); Lymphocytes % (auto) 5.3 % (10.0-50.0); Mean Corpuscular Hemoglobin 31.3 pg (28.0-32.0); Mean Corpuscular Hgb Conc. 33.1 g/dL (32.0-36.0); Mean Corpuscular Volume 94.6 fL (80.0-100.0); Monocytes # (auto) 0.4 uL; Monocytes % (auto) 8.8 % (0.0-12.0); Neutrophils # (auto) 4.2 uL; Neutrophils % (auto) 85.2 % (37.0-80.0); Nucleated Red Blood Cells % 0.2 %; Red Blood Cells 2.64 10^6/uL (4.0-5.20); White Blood Cell 4.9 10^3/uL (4.4-10.8)
[2017-11-03 08:41] LABS: Red Cell Distribution Width 24.6 % (11.8-14.3)
[2017-11-03 08:51] LABS: BUN/Creatinine Ratio 14.3; Calcium 7.4 mg/dL (8.5-10.1); Potassium 3.2 mmol/L (3.5-5.1)
[2017-11-03 09:00] VITALS: BP 139/77
[2017-11-03 09:00] LABS: Bilirubin, Total 0.7 mg/dL (0.2-1.0); Total Protein 5.9 g/dL (6.4-8.2)
[2017-11-03] MEDS ORDERED: LEVOFLOXACIN 250MG 50 ML IV ONE (10:00)
[2017-11-03] MEDS: PANTOPRAZOLE 40 MG TAB PO SCH (10:14)
[2017-11-03] MEDS: predniSONE 20 MG TAB PO SCH (10:14)
[2017-11-03] MEDS: Suplena 8 ounce PO SCH ×2 (10:15→22:16)
[2017-11-03] MEDS ORDERED: POTASSIUM CHL 20 Meq TABLET PO ONE (12:00)
[2017-11-03 13:00] VITALS: BP 140/78
[2017-11-03 15:19] LABS: INR 1.01 (0.9-1.15)
[2017-11-03 17:00] VITALS: BP 139/93
[2017-11-03 22:00] VITALS: BP 138/86
[2017-11-04 04:49] VITALS: BP 143/80
[2017-11-04 06:06] LABS: Albumin 2.1 g/dL (3.4-5.0); BUN/Creatinine Ratio 14.6; Bilirubin, Total 0.6 mg/dL (0.2-1.0); Calcium 7.2 mg/dL (8.5-10.1); Potassium 4.3 mmol/L (3.5-5.1); Total Protein 5.7 g/dL (6.4-8.2)
[2017-11-04] MEDS: ALBUTEROL SULF 2.5 MG/0.5ML(0.5%) NEB SOLN NEB SCH ×6 (06:34→22:00)
[2017-11-04] MEDS: PROMETHAZINE-DM 5 ML ORAL SYRUP PO PRN ×2 (07:40→21:51)
[2017-11-04 09:44] VITALS: BP 107/79
[2017-11-04] MEDS: Suplena 8 ounce PO SCH (10:00)
[2017-11-04] MEDS: PANTOPRAZOLE 40 MG TAB PO SCH (10:22)
[2017-11-04] MEDS: predniSONE 20 MG TAB PO SCH (10:23)
[2017-11-04] MEDS ORDERED: LIDOCAINE 2%HCL (LOCAL ANESTH.) INJ 20ML MDV ONE (12:19)
[2017-11-04 13:00] VITALS: BP 145/77
[2017-11-04 17:00] VITALS: BP 143/94
[2017-11-04] MEDS: LEVOFLOXACIN 250MG 50 ML IV SCH (17:29)
[2017-11-04] MEDS ORDERED: LOPERAMIDE HCL 2 MG CAP PO ONE (17:30)
[2017-11-04] MEDS: FLORASTOR (S. BOULARDII) 250 MG CAP PO SCH (17:45)
[2017-11-04 21:56] VITALS: BP 143/94
[2017-11-04 22:00] VITALS: BP 140/70
[2017-11-05] MEDS: ACETAMINOPHEN 325 MG TAB PO PRN ×2 (00:36→20:10)
[2017-11-05 05:00] VITALS: BP 143/90
[2017-11-05] MEDS: ALBUTEROL SULF 2.5 MG/0.5ML(0.5%) NEB SOLN NEB SCH ×5 (06:20→13:07)
[2017-11-05 07:32] LABS: Basophils # (auto) 0 uL; Eosinophils # (auto) 0 uL; Mean Corpuscular Hemoglobin 30.5 pg (28.0-32.0); Monocytes # (auto) 0.4 uL; Neutrophils # (auto) 3.2 uL; Neutrophils % (auto) 82.4 % (37.0-80.0); White Blood Cell 3.9 10^3/uL (4.4-10.8)
[2017-11-05 07:34] LABS: Basophils % (auto) 0.2 % (0.0-2.0); Eosinophils % (auto) 0.6 % (0.0-7.0); Hematocrit 23.5 % (36.0-46.0); Hemoglobin 7.5 g/dL (12.2-16.2); Lymphocytes # (auto) 0.3 uL; Lymphocytes % (auto) 6.8 % (10.0-50.0); Mean Corpuscular Hgb Conc. 31.9 g/dL (32.0-36.0); Mean Corpuscular Volume 95.5 fL (80.0-100.0); Nucleated Red Blood Cells % 0.1 %; Platelet Count (auto) 109 10^3/uL (140-450); Red Blood Cells 2.46 10^6/uL (4.0-5.20)
[2017-11-05 07:36] LABS: Red Cell Distribution Width 24.5 % (11.8-14.3)
[2017-11-05 07:57] LABS: Albumin 1.8 g/dL (3.4-5.0); BUN/Creatinine Ratio 13.9; Bilirubin, Total 0.5 mg/dL (0.2-1.0); Calcium 7.2 mg/dL (8.5-10.1); Potassium 4.2 mmol/L (3.5-5.1); Total Protein 5.8 g/dL (6.4-8.2)
[2017-11-05 08:56] VITALS: BP 148/85
[2017-11-05] MEDS: D5W/SOD CHL 0.45% 1,000 ML IV SCH ×2 (09:45→22:30)
[2017-11-05] MEDS: predniSONE 20 MG TAB PO SCH (10:00)
[2017-11-05] MEDS: FLORASTOR (S. BOULARDII) 250 MG CAP PO SCH (10:00)
[2017-11-05] MEDS: PANTOPRAZOLE 40 MG TAB PO SCH (10:00)
[2017-11-05 13:00] VITALS: BP 148/79
[2017-11-05] MEDS ORDERED: fentaNYL CITRATE 100 MCG/2 ML VL ONE (13:08)
[2017-11-05] MEDS ORDERED: MIDAZOLAM HCL 1MG/1ML-2 ML VIAL ONE (13:08)
[2017-11-05] MEDS: PROMETHAZINE-DM 5 ML ORAL SYRUP PO PRN (15:33)
[2017-11-05 17:00] VITALS: BP 139/91
[2017-11-05] MEDS ORDERED: amLODIPine BESYLATE 5 MG TAB PO ONE (17:30)
[2017-11-05 22:00] VITALS: BP 122/78
[2017-11-05] MEDS: Suplena 8 ounce PO SCH (22:00)
[2017-11-06] MEDS: PROMETHAZINE-DM 5 ML ORAL SYRUP PO PRN ×5 (02:05→20:54)
[2017-11-06 05:22] VITALS: BP 140/87
[2017-11-06 06:50] LABS: Basophils # (auto) 0 uL; Basophils % (auto) 0.7 % (0.0-2.0); Eosinophils # (auto) 0 uL; Hematocrit 24.1 % (36.0-46.0); Hemoglobin 7.8 g/dL (12.2-16.2); Lymphocytes # (auto) 0.3 uL; Mean Corpuscular Hemoglobin 30.5 pg (28.0-32.0); Mean Corpuscular Hgb Conc. 32.2 g/dL (32.0-36.0); Monocytes # (auto) 0.5 uL; White Blood Cell 3.9 10^3/uL (4.4-10.8)
[2017-11-06 06:52] LABS: Eosinophils % (auto) 0.9 % (0.0-7.0); Lymphocytes % (auto) 8.5 % (10.0-50.0); Mean Corpuscular Volume 94.8 fL (80.0-100.0); Monocytes % (auto) 12.6 % (0.0-12.0); Neutrophils % (auto) 77.3 % (37.0-80.0); Nucleated Red Blood Cells % 0.2 %; Platelet Count (auto) 128 10^3/uL (140-450); Red Blood Cells 2.54 10^6/uL (4.0-5.20)
[2017-11-06 07:06] LABS: Albumin 1.9 g/dL (3.4-5.0); Bilirubin, Total 0.7 mg/dL (0.2-1.0); Calcium 7.2 mg/dL (8.5-10.1); Potassium 3.9 mmol/L (3.5-5.1)
[2017-11-06 08:00] VITALS: BP 138/90
[2017-11-06 09:00] VITALS: BP 138/90
[2017-11-06] MEDS: PANTOPRAZOLE 40 MG TAB PO SCH (09:54)
[2017-11-06] MEDS: FLORASTOR (S. BOULARDII) 250 MG CAP PO SCH (09:54)
[2017-11-06] MEDS: predniSONE 20 MG TAB PO SCH (09:56)
[2017-11-06] MEDS: amLODIPine BESYLATE 5 MG TAB PO SCH (09:56)
[2017-11-06] MEDS: ACETAMINOPHEN 325 MG TAB PO PRN (09:59)
[2017-11-06] MEDS: Suplena 8 ounce PO SCH ×2 (10:00→22:00)
[2017-11-06 13:00] VITALS: BP_SYST 120
[2017-11-06] MEDS ORDERED: EPOETIN ALFA 10,000 UNIT/1 ML VIAL SC ONE (13:45)
[2017-11-06] MEDS: D5W/SOD CHL 0.45% 1,000 ML IV SCH (16:29)
[2017-11-06 17:00] VITALS: BP 130/93
[2017-11-06] MEDS: LEVOFLOXACIN 250MG 50 ML IV SCH (18:04)
[2017-11-06] MEDS: ALBUTEROL SULF 2.5 MG/0.5ML(0.5%) NEB SOLN NEB SCH ×2 (18:50→22:25)
[2017-11-06 22:00] VITALS: BP 124/78
[2017-11-07] MEDS: ACETAMINOPHEN 325 MG TAB PO PRN ×3 (00:07→18:00)
[2017-11-07] MEDS: D5W/SOD CHL 0.45% 1,000 ML IV SCH ×3 (01:45→19:09)
[2017-11-07] MEDS: ALBUTEROL SULF 2.5 MG/0.5ML(0.5%) NEB SOLN NEB SCH ×6 (02:15→22:00)
[2017-11-07] MEDS: PROMETHAZINE-DM 5 ML ORAL SYRUP PO PRN ×6 (03:16→23:25)
[2017-11-07 05:28] VITALS: BP 135/79
[2017-11-07 07:47] LABS: Mean Corpuscular Hgb Conc. 32.6 g/dL (32.0-36.0)
[2017-11-07 07:51] LABS: Hematocrit 24.5 % (36.0-46.0); Mean Corpuscular Hemoglobin 30.6 pg (28.0-32.0); Mean Corpuscular Volume 93.7 fL (80.0-100.0); Platelet Count (auto) 153 10^3/uL (140-450); Red Blood Cells 2.61 10^6/uL (4.0-5.20); White Blood Cell 4.1 10^3/uL (4.4-10.8)
[2017-11-07 07:57] LABS: Red Cell Distribution Width 23.7 % (11.8-14.3)
[2017-11-07 07:58] LABS: Basophils % (manual) 0 (0.0-2.0); Blast Cells 0; Eosinophils % (manual) 0 (0-7); Metamyelocytes % 0; Myelocytes % 0; Promyelocytes % 0; Reactive Lymphocytes 0
[2017-11-07 08:14] LABS: BUN/Creatinine Ratio 12.9; Calcium 7.4 mg/dL (8.5-10.1); Potassium 3.9 mmol/L (3.5-5.1)
[2017-11-07 09:00] VITALS: BP 140/92
[2017-11-07] MEDS: predniSONE 20 MG TAB PO SCH (10:45)
[2017-11-07] MEDS: PANTOPRAZOLE 40 MG TAB PO SCH (10:45)
[2017-11-07] MEDS: FLORASTOR (S. BOULARDII) 250 MG CAP PO SCH (10:45)
[2017-11-07] MEDS ORDERED: LIDOCAINE 1% HCL (LOCAL ANESTH.) INJ 20ML MDV ID ONE (10:45)
[2017-11-07] MEDS: amLODIPine BESYLATE 5 MG TAB PO SCH (10:45)
[2017-11-07] MEDS: Suplena 8 ounce PO SCH ×2 (10:46→22:00)
[2017-11-07 13:00] VITALS: BP 131/96
[2017-11-07 13:31] LABS: Band Neutrophils % (manual) 1; Lymphocytes % (manual) 6 (10.0-50.0); Monocytes % (manual) 9 (0-12)
[2017-11-07 17:00] VITALS: BP 129/74
[2017-11-07] MEDS: SODIUM CHLOR 0.9% PF (SALINE LOCK) 10ML VIAL IV SCH (22:00)
[2017-11-07 23:12] VITALS: BP 129/74
[2017-11-08 01:11] VITALS: BP 137/87
[2017-11-08] MEDS: ALBUTEROL SULF 2.5 MG/0.5ML(0.5%) NEB SOLN NEB SCH ×7 (02:00→23:48)
[2017-11-08] MEDS: PROMETHAZINE-DM 5 ML ORAL SYRUP PO PRN ×4 (03:37→22:20)
[2017-11-08 05:00] VITALS: BP 143/86
[2017-11-08 09:00] VITALS: BP 138/84
[2017-11-08] MEDS: amLODIPine BESYLATE 5 MG TAB PO SCH (10:04)
[2017-11-08] MEDS: FLORASTOR (S. BOULARDII) 250 MG CAP PO SCH (10:04)
[2017-11-08] MEDS: PANTOPRAZOLE 40 MG TAB PO SCH (10:05)
[2017-11-08] MEDS: Suplena 8 ounce PO SCH ×2 (10:05→22:00)
[2017-11-08] MEDS: SODIUM CHLOR 0.9% PF (SALINE LOCK) 10ML VIAL IV SCH ×2 (10:05→22:20)
[2017-11-08] MEDS: predniSONE 20 MG TAB PO SCH (10:05)
[2017-11-08 13:00] VITALS: BP 135/99
[2017-11-08] MEDS: LEVOFLOXACIN 250MG 50 ML IV SCH (16:55)
[2017-11-08] MEDS: D5W/SOD CHL 0.45% 1,000 ML IV SCH (16:55)
[2017-11-08 17:00] VITALS: BP 122/81
[2017-11-08] MEDS: ACETAMINOPHEN 325 MG TAB PO PRN (22:20)
[2017-11-08 22:28] VITALS: BP 136/91
[2017-11-09] MEDS: PROMETHAZINE-DM 5 ML ORAL SYRUP PO PRN ×5 (02:19→20:40)
[2017-11-09 04:50] VITALS: BP 140/79
[2017-11-09] MEDS: ALBUTEROL SULF 2.5 MG/0.5ML(0.5%) NEB SOLN NEB SCH ×4 (05:46→14:00)
[2017-11-09] MEDS: ACETAMINOPHEN 325 MG TAB PO PRN (08:45)
[2017-11-09] MEDS: D5W/SOD CHL 0.45% 1,000 ML IV SCH ×2 (08:46→20:42)
[2017-11-09 09:00] VITALS: BP 132/84
[2017-11-09] MEDS: predniSONE 20 MG TAB PO SCH (09:53)
[2017-11-09] MEDS: amLODIPine BESYLATE 5 MG TAB PO SCH (09:54)
[2017-11-09] MEDS: FLORASTOR (S. BOULARDII) 250 MG CAP PO SCH (09:54)
[2017-11-09] MEDS: PANTOPRAZOLE 40 MG TAB PO SCH (09:54)
[2017-11-09] MEDS: Suplena 8 ounce PO SCH ×2 (09:55→21:41)
[2017-11-09] MEDS: SODIUM CHLOR 0.9% PF (SALINE LOCK) 10ML VIAL IV SCH ×2 (09:56→21:40)
[2017-11-09 13:00] VITALS: BP 133/77
[2017-11-09 15:46] LABS: Albumin 2.1 g/dL (3.4-5.0); BUN/Creatinine Ratio 11.1; Bilirubin, Total 0.3 mg/dL (0.2-1.0); Calcium 7.4 mg/dL (8.5-10.1); Potassium 4.6 mmol/L (3.5-5.1); Total Protein 7.3 g/dL (6.4-8.2)
[2017-11-09 15:56] LABS: Basophils # (auto) 0 uL; Basophils % (auto) 0.2 % (0.0-2.0); Eosinophils # (auto) 0 uL; Eosinophils % (auto) 0.1 % (0.0-7.0); Hematocrit 27.6 % (36.0-46.0); Hemoglobin 8.3 g/dL (12.2-16.2); Lymphocytes # (auto) 0.2 uL; Lymphocytes % (auto) 5.6 % (10.0-50.0); Mean Corpuscular Hgb Conc. 30.2 g/dL (32.0-36.0); Mean Corpuscular Volume 99.2 fL (80.0-100.0); Monocytes # (auto) 0.2 uL; Monocytes % (auto) 4.8 % (0.0-12.0); Neutrophils % (auto) 89.3 % (37.0-80.0); Nucleated Red Blood Cells % 0.9 %; Platelet Count (auto) 179 10^3/uL (140-450); Red Blood Cells 2.78 10^6/uL (4.0-5.20); White Blood Cell 4.4 10^3/uL (4.4-10.8)
[2017-11-09 16:00] LABS: Red Cell Distribution Width 24.1 % (11.8-14.3)
[2017-11-09 17:00] VITALS: BP 124/73
[2017-11-09 21:30] VITALS: BP 143/87
[2017-11-10] VITALS (9 sets, daily range): BP systolic 134–153; BP diastolic 75–97
[2017-11-10] MEDS: PROMETHAZINE-DM 5 ML ORAL SYRUP PO PRN ×5 (00:12→20:35)
[2017-11-10] MEDS: ALBUTEROL SULF 2.5 MG/0.5ML(0.5%) NEB SOLN NEB SCH ×6 (02:00→18:00)
[2017-11-10] MEDS: ACETAMINOPHEN 325 MG TAB PO PRN ×2 (04:01→20:35)
[2017-11-10 07:17] LABS: White Blood Cell 3.8 10^3/uL (4.4-10.8)
[2017-11-10 07:20] LABS: Hematocrit 21.5 % (36.0-46.0); Mean Corpuscular Hemoglobin 30.3 pg (28.0-32.0); Mean Corpuscular Hgb Conc. 32.4 g/dL (32.0-36.0); Mean Corpuscular Volume 93.5 fL (80.0-100.0); Platelet Count (auto) 139 10^3/uL (140-450)
[2017-11-10 07:30] LABS: Red Cell Distribution Width 23.6 % (11.8-14.3)
[2017-11-10 07:33] LABS: Band Neutrophils % (manual) 0; Basophils % (manual) 0 (0.0-2.0); Blast Cells 0; Eosinophils % (manual) 0 (0-7); Metamyelocytes % 0; Myelocytes % 0; Promyelocytes % 0; Reactive Lymphocytes 0
[2017-11-10 07:36] LABS: BUN/Creatinine Ratio 11.6; Calcium 7.2 mg/dL (8.5-10.1); Potassium 3.6 mmol/L (3.5-5.1)
[2017-11-10 08:03] LABS: Lymphocytes % (manual) 6 (10.0-50.0); Monocytes % (manual) 2 (0-12)
[2017-11-10] MEDS: amLODIPine BESYLATE 5 MG TAB PO SCH (08:53)
[2017-11-10] MEDS: predniSONE 20 MG TAB PO SCH (08:53)
[2017-11-10] MEDS: SODIUM CHLOR 0.9% PF (SALINE LOCK) 10ML VIAL IV SCH ×2 (08:54→20:30)
[2017-11-10] MEDS: PANTOPRAZOLE 40 MG TAB PO SCH (08:54)
[2017-11-10] MEDS: FLORASTOR (S. BOULARDII) 250 MG CAP PO SCH (08:54)
[2017-11-10] MEDS: D5W/SOD CHL 0.45% 1,000 ML IV SCH ×2 (08:54→23:05)
[2017-11-10] MEDS: Suplena 8 ounce PO SCH (08:55)
[2017-11-10 11:53] LABS: White Blood Cell 4.6 10^3/uL (4.4-10.8)
[2017-11-10 11:55] LABS: Hematocrit 24.9 % (36.0-46.0); Mean Corpuscular Hemoglobin 30.1 pg (28.0-32.0); Mean Corpuscular Hgb Conc. 32.1 g/dL (32.0-36.0); Platelet Count (auto) 159 10^3/uL (140-450); Red Blood Cells 2.65 10^6/uL (4.0-5.20)
[2017-11-10 11:57] LABS: Red Cell Distribution Width 23.2 % (11.8-14.3)
[2017-11-10 12:00] LABS: Band Neutrophils % (manual) 0; Basophils % (manual) 0 (0.0-2.0); Blast Cells 0; Eosinophils % (manual) 0 (0-7); Metamyelocytes % 0; Myelocytes % 0; Promyelocytes % 0; Reactive Lymphocytes 0
[2017-11-10 12:12] LABS: Albumin 2.1 g/dL (3.4-5.0); BUN/Creatinine Ratio 10.8; Bilirubin, Total 0.5 mg/dL (0.2-1.0); Calcium 7.5 mg/dL (8.5-10.1); Potassium 3.8 mmol/L (3.5-5.1); Total Protein 6.9 g/dL (6.4-8.2)
[2017-11-10] MEDS ORDERED: ONDANSETRON ODT 4 MG TAB PO PRN (12:15)
[2017-11-10 12:32] LABS: Lymphocytes % (manual) 6 (10.0-50.0); Monocytes % (manual) 5 (0-12)
[2017-11-10] MEDS: Novasource Renal 8 Ounces PO SCH (14:23)
[2017-11-11 00:44] VITALS: BP 138/85
[2017-11-11] MEDS: ALBUTEROL SULF 2.5 MG/0.5ML(0.5%) NEB SOLN NEB SCH ×4 (02:00→14:00)
[2017-11-11] MEDS: PROMETHAZINE-DM 5 ML ORAL SYRUP PO PRN ×2 (05:03→10:18)
[2017-11-11 05:14] VITALS: BP 139/76
[2017-11-11 07:28] LABS: Hematocrit 26.5 % (36.0-46.0); Hemoglobin 8.5 g/dL (12.2-16.2); Mean Corpuscular Hemoglobin 29.7 pg (28.0-32.0); Mean Corpuscular Volume 92.9 fL (80.0-100.0); Platelet Count (auto) 169 10^3/uL (140-450); Red Blood Cells 2.85 10^6/uL (4.0-5.20); White Blood Cell 4.1 10^3/uL (4.4-10.8)
[2017-11-11 07:46] LABS: BUN/Creatinine Ratio 11.3; Calcium 7.4 mg/dL (8.5-10.1); Potassium 3.6 mmol/L (3.5-5.1)
[2017-11-11 07:48] LABS: Red Cell Distribution Width 22.4 % (11.8-14.3)
[2017-11-11 07:49] LABS: Band Neutrophils % (manual) 0; Basophils % (manual) 0 (0.0-2.0); Eosinophils % (manual) 0 (0-7); Myelocytes % 0; Promyelocytes % 0; Reactive Lymphocytes 0
[2017-11-11 07:50] LABS: Blast Cells 0
[2017-11-11 07:57] LABS: Lymphocytes % (manual) 13 (10.0-50.0); Metamyelocytes % 1; Monocytes % (manual) 12 (0-12)
[2017-11-11] MEDS: Novasource Renal 8 Ounces PO SCH ×3 (08:02→12:44)
[2017-11-11 09:00] VITALS: BP 145/91
[2017-11-11] MEDS: FLORASTOR (S. BOULARDII) 250 MG CAP PO SCH (10:07)
[2017-11-11] MEDS: amLODIPine BESYLATE 5 MG TAB PO SCH (10:07)
[2017-11-11] MEDS: PANTOPRAZOLE 40 MG TAB PO SCH (10:07)
[2017-11-11] MEDS: predniSONE 20 MG TAB PO SCH (10:07)
[2017-11-11] MEDS: SODIUM CHLOR 0.9% PF (SALINE LOCK) 10ML VIAL IV SCH (10:10)
[2017-11-11] MEDS: D5W/SOD CHL 0.45% 1,000 ML IV SCH (12:25)
[2017-11-11 13:00] VITALS: BP 141/77
== END 2017-11-11 14:50 | disposition home or self-care (01) | DRG 469 ==
LOC: ER 16:56 → EDBD 16:56 → TELE 16:57 → TELE-WESTW 10-28 08:53
PROVIDERS: ADMIT Nurse Practitioner; ATTEND Internal Medicine
PROC: 30233N1 Transfusion of Nonautologous Red Blood Cells into Peripheral Vein, Percutaneous Approach (ICD-10-PCS; 2017-11-01)
PROC: 0BBJ3ZX Excision of Left Lower Lung Lobe, Percutaneous Approach, Diagnostic (ICD-10-PCS; principal; 2017-11-05)
PROC: 05H533Z Insertion of Infusion Device into Right Subclavian Vein, Percutaneous Approach (ICD-10-PCS; 2017-11-07)
DX: N17.9 Acute kidney failure, unspecified (principal); J15.6 Pneumonia due to other Gram-negative bacteria; E43 Unspecified severe protein-calorie malnutrition; I28.8 Other diseases of pulmonary vessels; D61.810 Antineoplastic chemotherapy induced pancytopenia; I13.11 Hypertensive heart and chronic kidney disease without heart failure, with stage 5 chronic kidney disease, or end stage renal disease; N18.6 End stage renal disease; Z99.2 Dependence on renal dialysis; E83.51 Hypocalcemia; D63.8 Anemia in other chronic diseases classified elsewhere; K21.9 Gastro-esophageal reflux disease without esophagitis; J45.909 Unspecified asthma, uncomplicated; R09.02 Hypoxemia; T45.1X5A Adverse effect of antineoplastic and immunosuppressive drugs, initial encounter; E87.70 Fluid overload, unspecified; N05.9 Unspecified nephritic syndrome with unspecified morphologic changes; M31.8 Other specified necrotizing vasculopathies; Z82.49 Family history of ischemic heart disease and other diseases of the circulatory system; Z90.710 Acquired absence of both cervix and uterus; Z90.49 Acquired absence of other specified parts of digestive tract; Z68.24 Body mass index [BMI] 24.0-24.9, adult; Z23 Encounter for immunization; Y92.89 Other specified places as the place of occurrence of the external cause
CPT/HCPCS: 10022; 36415; 36569; 71045; 71046; 71250; 76705; 77012; 80048; 80053; 80202; 82962; 83520; 83605; 83735; 83880; 84100; 84484; 85007; 85025; 85027; 85379; 85610; 85652; 86160; 86256; 86850; 86900; 86901; 86920; 87040; 87400; 87493; 93005; 94640; 94761; 96361; 96365; 96375; 99291; J0885; J1956; J2250; Q0162

== ENCOUNTER 2017-12-21 05:25 | Inpatient (IN) | payer MEDICAID ==
[~2017-12-21] VITALS: Ht 172.7 cm; Wt 65.5 kg
[2017-12-21] MEDS ORDERED: methylPREDNISolone SOD SUCC 125 MG/2 ML VL ONE (05:39)
[2017-12-21] MEDS ORDERED: methylPREDNISolone SOD SUCC 125 MG/2 ML VL IV ONE (05:45)
[2017-12-21 06:36] LABS: Basophils # (auto) 0 uL; Basophils % (auto) 0.4 % (0.0-2.0); Eosinophils # (auto) 0 uL; Eosinophils % (auto) 0.1 % (0.0-7.0); Hematocrit 31.6 % (36.0-46.0); Hemoglobin 9.6 g/dL (12.2-16.2); Lymphocytes # (auto) 0.4 uL; Lymphocytes % (auto) 3.6 % (10.0-50.0); Mean Corpuscular Hemoglobin 28.4 pg (28.0-32.0); Mean Corpuscular Hgb Conc. 30.5 g/dL (32.0-36.0); Monocytes # (auto) 0.8 uL; Neutrophils % (auto) 88.9 % (37.0-80.0); Nucleated Red Blood Cells % 0.4 %; Platelet Count (auto) 160 10^3/uL (140-450); Red Blood Cells 3.39 10^6/uL (4.0-5.20); Red Cell Distribution Width 19.7 % (11.8-14.3); White Blood Cell 11.2 10^3/uL (4.4-10.8)
[2017-12-21] MEDS ORDERED: PHEN1ELX5 PO (06:45)
[2017-12-21] MEDS ORDERED: ATOR20TA PO (06:45)
[2017-12-21] MEDS ORDERED: ONDA4TAB5 PO (06:45)
[2017-12-21 06:46] LABS: Albumin 2.7 g/dL (3.4-5.0); BUN/Creatinine Ratio 12.1; Bilirubin, Total 0.7 mg/dL (0.2-1.0); Magnesium 2.6 mg/dL (1.6-2.6); Potassium 5.4 mmol/L (3.5-5.1); Total Protein 8.1 g/dL (6.4-8.2)
[2017-12-21] MEDS ORDERED: FLUT110A INH (06:47)
[2017-12-21] MEDS ORDERED: cefTRIAXone 1GM/10ml IVPUSH 10 ML IV ONE (07:30)
[2017-12-21 10:25] VITALS: BP 133/98
[2017-12-21] MEDS ORDERED: LABETALOL HCL 5 MG/ML ML 20ML VIAL IV ONE ×2 (10:51→11:00)
[2017-12-21] MEDS ORDERED: LORazepam 2MG/ML-1ML VIAL ONE (10:51)
[2017-12-21] MEDS ORDERED: LORazepam 2MG/ML-1ML VIAL IV ONE (11:00)
[2017-12-21] MEDS ORDERED: FUROSEMIDE 40 MG/4 ML VIAL IV ONE (11:30)
[2017-12-21] MEDS ORDERED: LORazepam 0.5 MG TAB PO PRN (11:45)
[2017-12-21] MEDS ORDERED: PIPERACILLIN-TAZOB 2.25GM 50 ML IV ONE (11:45)
[2017-12-21] MEDS ORDERED: MORPHINE SULFATE 4 MG/ML SYR/VIAL IV PRN (11:45)
[2017-12-21] MEDS ORDERED: LACTULOSE 20Gm/30ML SOLN PO PRN (11:45)
[2017-12-21] MEDS ORDERED: NITROGLYCERIN 0.4 MG SL TAB SL PRN (11:45)
[2017-12-21] MEDS ORDERED: ALBUTEROL SULF 2.5 MG/0.5ML(0.5%) NEB SOLN NEB PRN (11:45)
[2017-12-21] MEDS ORDERED: ONDANSETRON ODT 4 MG TAB PO PRN (12:00)
[2017-12-21] MEDS ORDERED: OSELTAMIVIR 30 MG CAP PO ONE (12:15)
[2017-12-21 12:32] LABS: INR 1.06 (0.9-1.15); Partial Thromboplastin Time 24.4 sec (22.64-33.71); Prothrombin Time 11.6 sec (9.37-12.3)
[2017-12-21] MEDS: FUROSEMIDE 40 MG/4 ML VIAL IV SCH ×2 (12:40→18:42)
[2017-12-21] MEDS: IPRATROPIUM BROM 0.5 MG/2.5ML INH SOL NEB SCH ×2 (12:44→18:42)
[2017-12-21] MEDS: ALBUTEROL SULF 2.5 MG/0.5ML(0.5%) NEB SOLN NEB SCH ×2 (12:44→18:42)
[2017-12-21] MEDS ORDERED: ENOXAPARIN SOD 80 MG/0.8ML SYRINGE SC ONE (13:15)
[2017-12-21] MEDS: LINEZOLID 600MG/300ML 300 ML IV SCH ×2 (13:19→22:20)
[2017-12-21] MEDS: BUDESONIDE (INHALATION) 0.5 MG/2 ML NEB NEB SCH ×2 (14:00→18:42)
[2017-12-21] MEDS: SODIUM CHLOR 0.9% PF (SALINE LOCK) 10ML VIAL IV SCH ×2 (14:14→22:19)
[2017-12-21 18:38] VITALS: BP 152/65
[2017-12-21 20:40] VITALS: BP 130/94
[2017-12-21] MEDS: PIPERACILLIN-TAZOB 2.25GM 50 ML IV SCH (22:20)
[2017-12-21] MEDS: FERROUS SULFATE 325 MG TAB PO SCH (22:20)
[2017-12-21 22:22] VITALS: BP 130/94
[2017-12-21] MEDS: CARVEDILOL 3.125 MG TAB PO SCH (22:28)
[2017-12-22] VITALS (8 sets, daily range): BP systolic 97–126; BP diastolic 64–83
[2017-12-22] MEDS: IPRATROPIUM BROM 0.5 MG/2.5ML INH SOL NEB SCH ×4 (00:04→18:52)
[2017-12-22] MEDS: ALBUTEROL SULF 2.5 MG/0.5ML(0.5%) NEB SOLN NEB SCH ×4 (00:04→18:52)
[2017-12-22] MEDS: PROMETHAZINE HCL 25 MG/ML 1ML IV PRN ×2 (02:31→20:03)
[2017-12-22] MEDS ORDERED: methylPREDNISolone SOD SUCC 125 MG/2 ML VL IV ONE (03:15)
[2017-12-22] MEDS: SODIUM CHLOR 0.9% PF (SALINE LOCK) 10ML VIAL IV SCH ×3 (06:04→21:21)
[2017-12-22] MEDS: BUDESONIDE (INHALATION) 0.5 MG/2 ML NEB NEB SCH ×2 (06:46→18:52)
[2017-12-22] MEDS: FUROSEMIDE 40 MG/4 ML VIAL IV SCH ×2 (07:23→18:32)
[2017-12-22 08:24] LABS: Hemoglobin 8.7 g/dL (12.2-16.2); Mean Corpuscular Hemoglobin 29.1 pg (28.0-32.0); Mean Corpuscular Volume 93.6 fL (80.0-100.0); Platelet Count (auto) 94 10^3/uL (140-450); Red Blood Cells 2.99 10^6/uL (4.0-5.20); Red Cell Distribution Width 19.7 % (11.8-14.3); White Blood Cell 9.1 10^3/uL (4.4-10.8)
[2017-12-22 08:29] LABS: Band Neutrophils % (manual) 0; Basophils % (manual) 0 (0.0-2.0); Blast Cells 0; Eosinophils % (manual) 0 (0-7); Metamyelocytes % 0; Myelocytes % 0; Promyelocytes % 0; Reactive Lymphocytes 0
[2017-12-22 08:43] LABS: Albumin 2.3 g/dL (3.4-5.0); BUN/Creatinine Ratio 13.1; Bilirubin, Total 0.4 mg/dL (0.2-1.0); Total Protein 6.7 g/dL (6.4-8.2)
[2017-12-22 09:20] LABS: Potassium 6.1 mmol/L (3.5-5.1)
[2017-12-22 09:29] LABS: Urine Bacteria FEW /hpf (None Seen); Urine Blood TRACE /uL (Negative); Urine Mucus FEW (None Seen); Urine Specific Gravity 1.011 (1.001-1.035); Urine WBC 5 /hpf (0 - 5)
[2017-12-22] MEDS ORDERED: ENOXAPARIN SOD 30 MG/0.3 ML SYRINGE SC SCH (10:00)
[2017-12-22] MEDS ORDERED: EPOETIN ALFA 10,000 UNIT/1 ML VIAL IV ONE (10:00)
[2017-12-22] MEDS: amLODIPine BESYLATE 5 MG TAB PO SCH (10:00)
[2017-12-22] MEDS ORDERED: SODIUM CHL 0.9% 1000 ML BAG XX ONE (10:00)
[2017-12-22] MEDS: CARVEDILOL 3.125 MG TAB PO SCH ×2 (10:00→21:20)
[2017-12-22] MEDS: ENOXAPARIN SOD 80 MG/0.8ML SYRINGE SC SCH (10:15)
[2017-12-22] MEDS: ATORVASTATIN 20 MG TAB PO SCH (10:15)
[2017-12-22] MEDS: MULTIPLE VITAMIN TAB PO SCH (10:15)
[2017-12-22] MEDS: ASPirin 81 mg TAB PO SCH (10:15)
[2017-12-22] MEDS: PANTOPRAZOLE 40 MG TAB PO SCH (10:15)
[2017-12-22] MEDS: FERROUS SULFATE 325 MG TAB PO SCH ×2 (10:15→21:20)
[2017-12-22] MEDS: AZITHROMYCIN 500MG/ 250ML 250 ML IV SCH (10:33)
[2017-12-22] MEDS: PIPERACILLIN-TAZOB 2.25GM 50 ML IV SCH ×2 (10:33→21:19)
[2017-12-22] MEDS: LINEZOLID 600MG/300ML 300 ML IV SCH (10:34)
[2017-12-22] MEDS ORDERED: VANCOMYCIN 1GM/250ML 250 ML IV ONE (10:45)
[2017-12-22] MEDS ORDERED: VANCOMYCIN PER PHARMACY 0 MG IV SCH (10:45)
[2017-12-22] MEDS ORDERED: LABETALOL HCL 5 MG/ML ML 20ML VIAL IV ONE ×2 (10:45→11:15)
[2017-12-22] MEDS ORDERED: AMIODARONE HCL 200 MG TAB PO ONE (11:45)
[2017-12-22] MEDS ORDERED: AMIODARONE HCL 150 MG in D5W 5% 100 ML IV ONE (11:45)
[2017-12-22] MEDS ORDERED: guaiFENesin-DM 100/10mg/5ml SYR ONE (12:08)
[2017-12-22] MEDS: guaiFENesin-CODEINE LIQUID 5 ML UD PO PRN ×2 (12:09→12:20)
[2017-12-22] MEDS: SODIUM BICARBONATE 650 MG TAB PO SCH ×2 (12:56→21:19)
[2017-12-22 14:23] LABS: Lymphocytes % (manual) 3 (10.0-50.0); Monocytes % (manual) 2 (0-12)
[2017-12-22] MEDS ORDERED: PIPERACILLIN-TAZOB 0.75 GM in D5W 5% 50 ML IV SCH (16:00)
[2017-12-22] MEDS ORDERED: OSELTAMIVIR 30 MG CAP PO PRN (17:00)
[2017-12-22] MEDS: AMIODARONE HCL 200 MG TAB PO SCH (21:20)
[2017-12-23] VITALS: BP 135/75
[2017-12-23] MEDS: ALBUTEROL SULF 2.5 MG/0.5ML(0.5%) NEB SOLN NEB SCH ×4 (00:43→18:32)
[2017-12-23] MEDS: IPRATROPIUM BROM 0.5 MG/2.5ML INH SOL NEB SCH ×4 (00:43→18:32)
[2017-12-23 04:00] VITALS: BP 130/75
[2017-12-23 05:17] LABS: Basophils # (auto) 0.1 uL; Basophils % (auto) 0.7 % (0.0-2.0); Eosinophils # (auto) 0 uL; Lymphocytes # (auto) 0.2 uL; Lymphocytes % (auto) 1.8 % (10.0-50.0); Mean Corpuscular Hemoglobin 28.1 pg (28.0-32.0); Mean Corpuscular Hgb Conc. 31.1 g/dL (32.0-36.0); Mean Corpuscular Volume 90.3 fL (80.0-100.0); Monocytes # (auto) 0.5 uL; Monocytes % (auto) 3.8 % (0.0-12.0); Neutrophils # (auto) 12.3 uL; Neutrophils % (auto) 93.7 % (37.0-80.0); Nucleated Red Blood Cells % 1.5 %; Platelet Count (auto) 113 10^3/uL (140-450); Red Blood Cells 3.21 10^6/uL (4.0-5.20); Red Cell Distribution Width 19.1 % (11.8-14.3); White Blood Cell 13.1 10^3/uL (4.4-10.8)
[2017-12-23 05:32] LABS: Albumin 2.4 g/dL (3.4-5.0); BUN/Creatinine Ratio 11.8; Calcium 7.4 mg/dL (8.5-10.1); Potassium 4.9 mmol/L (3.5-5.1)
[2017-12-23 05:34] LABS: Bilirubin, Total 0.6 mg/dL (0.2-1.0); Total Protein 6.8 g/dL (6.4-8.2)
[2017-12-23] MEDS: FUROSEMIDE 40 MG/4 ML VIAL IV SCH ×2 (06:06→17:57)
[2017-12-23] MEDS: SODIUM CHLOR 0.9% PF (SALINE LOCK) 10ML VIAL IV SCH ×3 (06:07→21:35)
[2017-12-23] MEDS: BUDESONIDE (INHALATION) 0.5 MG/2 ML NEB NEB SCH ×2 (06:14→18:32)
[2017-12-23 08:00] VITALS: BP 124/83
[2017-12-23] MEDS: AZITHROMYCIN 500MG/ 250ML 250 ML IV SCH (10:00)
[2017-12-23] MEDS: FERROUS SULFATE 325 MG TAB PO SCH ×2 (10:00→21:35)
[2017-12-23] MEDS: ATORVASTATIN 20 MG TAB PO SCH (10:37)
[2017-12-23] MEDS: MULTIPLE VITAMIN TAB PO SCH (10:37)
[2017-12-23] MEDS: ASPirin 81 mg TAB PO SCH (10:37)
[2017-12-23] MEDS: PANTOPRAZOLE 40 MG TAB PO SCH (10:37)
[2017-12-23] MEDS: ENOXAPARIN SOD 80 MG/0.8ML SYRINGE SC SCH (10:38)
[2017-12-23] MEDS: AMIODARONE HCL 200 MG TAB PO SCH ×2 (10:38→21:37)
[2017-12-23] MEDS: SODIUM BICARBONATE 650 MG TAB PO SCH ×2 (10:38→21:35)
[2017-12-23] MEDS: CARVEDILOL 3.125 MG TAB PO SCH ×2 (10:39→21:36)
[2017-12-23] MEDS: amLODIPine BESYLATE 5 MG TAB PO SCH ×2 (10:40→22:00)
[2017-12-23] MEDS: PROMETHAZINE W/CODEINE 5 ML ORAL SYRUP PO PRN ×2 (11:15→20:32)
[2017-12-23] MEDS: PIPERACILLIN-TAZOB 2.25GM 50 ML IV SCH (12:00)
[2017-12-23] MEDS ORDERED: CARVEDILOL 3.125 MG TAB PO ONE (14:30)
[2017-12-23] MEDS ORDERED: amLODIPine BESYLATE 5 MG TAB PO ONE (14:30)
[2017-12-23 16:00] VITALS: BP 91/64
[2017-12-24] MEDS: PIPERACILLIN-TAZOB 2.25GM 50 ML IV SCH ×3 (00:14→23:31)
[2017-12-24] MEDS: ALBUTEROL SULF 2.5 MG/0.5ML(0.5%) NEB SOLN NEB SCH ×4 (00:25→18:57)
[2017-12-24] MEDS: IPRATROPIUM BROM 0.5 MG/2.5ML INH SOL NEB SCH ×4 (00:25→18:57)
[2017-12-24 05:10] LABS: Basophils # (auto) 0 uL; Basophils % (auto) 0.3 % (0.0-2.0); Eosinophils # (auto) 0 uL; Hematocrit 27.8 % (36.0-46.0); Hemoglobin 8.7 g/dL (12.2-16.2); Lymphocytes # (auto) 0.2 uL; Lymphocytes % (auto) 1.6 % (10.0-50.0); Mean Corpuscular Hemoglobin 28.4 pg (28.0-32.0); Mean Corpuscular Hgb Conc. 31.4 g/dL (32.0-36.0); Mean Corpuscular Volume 90.6 fL (80.0-100.0); Monocytes # (auto) 0.4 uL; Monocytes % (auto) 3.5 % (0.0-12.0); Neutrophils # (auto) 11.8 uL; Neutrophils % (auto) 94.6 % (37.0-80.0); Nucleated Red Blood Cells % 1.3 %; Platelet Count (auto) 111 10^3/uL (140-450); Red Blood Cells 3.07 10^6/uL (4.0-5.20); Red Cell Distribution Width 19.3 % (11.8-14.3); White Blood Cell 12.5 10^3/uL (4.4-10.8)
[2017-12-24 05:28] LABS: Albumin 2.3 g/dL (3.4-5.0); Calcium 7.1 mg/dL (8.5-10.1); Potassium 4.4 mmol/L (3.5-5.1)
[2017-12-24 05:31] LABS: BUN/Creatinine Ratio 11.8
[2017-12-24 05:33] LABS: Bilirubin, Total 0.5 mg/dL (0.2-1.0); Phosphorus 5.6 mg/dL (2.5-4.90); Total Protein 6.5 g/dL (6.4-8.2)
[2017-12-24] MEDS: BUDESONIDE (INHALATION) 0.5 MG/2 ML NEB NEB SCH ×2 (05:55→18:57)
[2017-12-24 08:33] VITALS: BP 129/68
[2017-12-24] MEDS ORDERED: ADENOSINE 58 MG in GIVE UN-DILUTED 0 ML IV STA (08:39)
[2017-12-24 08:49] VITALS: BP 123/72
[2017-12-24] MEDS ORDERED: SODIUM CHL 0.9% 1000 ML BAG XX ONE (09:45)
[2017-12-24] MEDS ORDERED: EPOETIN ALFA 10,000 UNIT/1 ML VIAL IV ONE (09:45)
[2017-12-24] MEDS: MULTIPLE VITAMIN TAB PO SCH (10:00)
[2017-12-24] MEDS: CARVEDILOL 3.125 MG TAB PO SCH ×2 (10:00→21:15)
[2017-12-24] MEDS: PANTOPRAZOLE 40 MG TAB PO SCH (10:00)
[2017-12-24] MEDS: SODIUM BICARBONATE 650 MG TAB PO SCH ×2 (10:00→21:15)
[2017-12-24] MEDS: ASPirin 81 mg TAB PO SCH ×2 (10:00→16:20)
[2017-12-24] MEDS: FERROUS SULFATE 325 MG TAB PO SCH ×2 (10:00→21:14)
[2017-12-24] MEDS: ENOXAPARIN SOD 80 MG/0.8ML SYRINGE SC SCH (10:00)
[2017-12-24] MEDS: amLODIPine BESYLATE 5 MG TAB PO SCH ×2 (10:00→21:15)
[2017-12-24 12:05] VITALS: BP 138/80
[2017-12-24] MEDS ORDERED: NITROGLYCERIN 0.4 MG SL TAB SL ONE (12:34)
[2017-12-24] MEDS ORDERED: VANCOMYCIN 1GM/250ML 250 ML IV ONE (16:00)
[2017-12-24] MEDS: PROMETHAZINE W/CODEINE 5 ML ORAL SYRUP PO PRN (16:19)
[2017-12-24] MEDS: AMIODARONE HCL 200 MG TAB PO SCH ×2 (16:20→21:14)
[2017-12-24] MEDS: ATORVASTATIN 20 MG TAB PO SCH (16:20)
[2017-12-24] MEDS: SEVELAMER 800 MG TAB PO SCH (16:21)
[2017-12-24 17:04] VITALS: BP 135/83
[2017-12-24] MEDS: AZITHROMYCIN 500MG/ 250ML 250 ML IV SCH (17:55)
[2017-12-24] MEDS: SODIUM CHLOR 0.9% PF (SALINE LOCK) 10ML VIAL IV SCH ×2 (17:56→21:16)
[2017-12-24] MEDS: FUROSEMIDE 40 MG/4 ML VIAL IV SCH (17:56)
[2017-12-24] MEDS: PRO-STAT 64 30ML PO SCH (18:00)
[2017-12-24] MEDS: Novasource Renal 8 Ounces PO SCH (18:00)
[2017-12-24] MEDS: TEMAZEPAM 15 MG CAP PO PRN (21:15)
[2017-12-24 21:28] VITALS: BP 122/82
[2017-12-25] MEDS: PROMETHAZINE W/CODEINE 5 ML ORAL SYRUP PO PRN ×2 (04:16→22:03)
[2017-12-25] MEDS: FUROSEMIDE 40 MG/4 ML VIAL IV SCH ×2 (05:48→18:19)
[2017-12-25] MEDS: SODIUM CHLOR 0.9% PF (SALINE LOCK) 10ML VIAL IV SCH ×3 (05:49→21:52)
[2017-12-25 05:50] VITALS: BP 126/74
[2017-12-25] MEDS: IPRATROPIUM BROM 0.5 MG/2.5ML INH SOL NEB SCH ×4 (06:28→19:17)
[2017-12-25] MEDS: BUDESONIDE (INHALATION) 0.5 MG/2 ML NEB NEB SCH ×2 (06:28→19:19)
[2017-12-25] MEDS: ALBUTEROL SULF 2.5 MG/0.5ML(0.5%) NEB SOLN NEB SCH ×4 (06:28→19:17)
[2017-12-25 06:52] LABS: Basophils # (auto) 0 uL; Basophils % (auto) 0.2 % (0.0-2.0); Eosinophils # (auto) 0 uL; Hematocrit 27.5 % (36.0-46.0); Hemoglobin 8.6 g/dL (12.2-16.2); Lymphocytes # (auto) 0.2 uL; Lymphocytes % (auto) 2.1 % (10.0-50.0); Mean Corpuscular Hemoglobin 28.4 pg (28.0-32.0); Mean Corpuscular Hgb Conc. 31.1 g/dL (32.0-36.0); Mean Corpuscular Volume 91.4 fL (80.0-100.0); Monocytes # (auto) 0.2 uL; Monocytes % (auto) 2.5 % (0.0-12.0); Neutrophils # (auto) 8.8 uL; Neutrophils % (auto) 95.2 % (37.0-80.0); Nucleated Red Blood Cells % 0.7 %; Platelet Count (auto) 98 10^3/uL (140-450); Red Blood Cells 3.02 10^6/uL (4.0-5.20); Red Cell Distribution Width 18.9 % (11.8-14.3); White Blood Cell 9.3 10^3/uL (4.4-10.8)
[2017-12-25 07:23] LABS: Calcium 7.3 mg/dL (8.5-10.1); Potassium 3.5 mmol/L (3.5-5.1)
[2017-12-25 07:25] LABS: BUN/Creatinine Ratio 9.2
[2017-12-25 07:28] LABS: Bilirubin, Total 0.5 mg/dL (0.2-1.0)
[2017-12-25] MEDS: PRO-STAT 64 30ML PO SCH ×2 (08:00→18:02)
[2017-12-25] MEDS: Novasource Renal 8 Ounces PO SCH ×2 (08:00→18:02)
[2017-12-25] MEDS: SEVELAMER 800 MG TAB PO SCH ×3 (08:00→18:16)
[2017-12-25 10:07] VITALS: BP 123/70
[2017-12-25] MEDS: ATORVASTATIN 20 MG TAB PO SCH (10:27)
[2017-12-25] MEDS: SODIUM BICARBONATE 650 MG TAB PO SCH ×2 (10:27→21:50)
[2017-12-25] MEDS: PANTOPRAZOLE 40 MG TAB PO SCH (10:27)
[2017-12-25] MEDS: FERROUS SULFATE 325 MG TAB PO SCH ×2 (10:28→21:51)
[2017-12-25] MEDS: ASPirin 81 mg TAB PO SCH (10:28)
[2017-12-25] MEDS: amLODIPine BESYLATE 5 MG TAB PO SCH ×2 (10:28→21:51)
[2017-12-25] MEDS: CARVEDILOL 3.125 MG TAB PO SCH ×2 (10:29→21:51)
[2017-12-25] MEDS: MULTIPLE VITAMIN TAB PO SCH (10:29)
[2017-12-25] MEDS: AZITHROMYCIN 500MG/ 250ML 250 ML IV SCH (10:30)
[2017-12-25] MEDS: ENOXAPARIN SOD 80 MG/0.8ML SYRINGE SC SCH (10:30)
[2017-12-25] MEDS: AMIODARONE HCL 200 MG TAB PO SCH ×2 (10:39→21:50)
[2017-12-25] MEDS: PIPERACILLIN-TAZOB 2.25GM 50 ML IV SCH ×2 (12:33→23:40)
[2017-12-25 13:00] VITALS: BP 102/65
[2017-12-25 20:00] VITALS: BP 157/90
[2017-12-25 22:00] VITALS: BP 157/90
[2017-12-26] MEDS: PROMETHAZINE W/CODEINE 5 ML ORAL SYRUP PO PRN ×2 (04:55→22:27)
[2017-12-26 05:00] VITALS: BP 122/79
[2017-12-26] MEDS: SODIUM CHLOR 0.9% PF (SALINE LOCK) 10ML VIAL IV SCH ×3 (06:24→22:19)
[2017-12-26] MEDS: IPRATROPIUM BROM 0.5 MG/2.5ML INH SOL NEB SCH ×4 (06:25→18:36)
[2017-12-26] MEDS: ALBUTEROL SULF 2.5 MG/0.5ML(0.5%) NEB SOLN NEB SCH ×4 (06:25→18:36)
[2017-12-26] MEDS: FUROSEMIDE 40 MG/4 ML VIAL IV SCH ×2 (06:25→18:58)
[2017-12-26] MEDS: BUDESONIDE (INHALATION) 0.5 MG/2 ML NEB NEB SCH ×2 (06:25→18:36)
[2017-12-26 07:07] LABS: Basophils # (auto) 0 uL; Basophils % (auto) 0.1 % (0.0-2.0); Eosinophils # (auto) 0 uL; Eosinophils % (auto) 0.4 % (0.0-7.0); Hemoglobin 9.6 g/dL (12.2-16.2); Lymphocytes # (auto) 0.3 uL; Lymphocytes % (auto) 4.4 % (10.0-50.0); Mean Corpuscular Hemoglobin 28.6 pg (28.0-32.0); Mean Corpuscular Hgb Conc. 31.1 g/dL (32.0-36.0); Mean Corpuscular Volume 91.9 fL (80.0-100.0); Monocytes # (auto) 0.4 uL; Monocytes % (auto) 4.9 % (0.0-12.0); Neutrophils # (auto) 6.8 uL; Neutrophils % (auto) 90.2 % (37.0-80.0); Nucleated Red Blood Cells % 0.4 %; Platelet Count (auto) 100 10^3/uL (140-450); Red Blood Cells 3.37 10^6/uL (4.0-5.20); Red Cell Distribution Width 19.7 % (11.8-14.3); White Blood Cell 7.5 10^3/uL (4.4-10.8)
[2017-12-26 07:34] LABS: BUN/Creatinine Ratio 8.2; Bilirubin, Total 0.5 mg/dL (0.2-1.0); Calcium 7.5 mg/dL (8.5-10.1); Potassium 3.5 mmol/L (3.5-5.1); Total Protein 6.5 g/dL (6.4-8.2)
[2017-12-26 08:00] VITALS: BP 129/82
[2017-12-26] MEDS: PRO-STAT 64 30ML PO SCH ×2 (08:00→18:59)
[2017-12-26] MEDS: Novasource Renal 8 Ounces PO SCH ×2 (08:00→18:59)
[2017-12-26] MEDS ORDERED: EPOETIN ALFA 10,000 UNIT/1 ML VIAL IV ONE (08:15)
[2017-12-26] MEDS ORDERED: SODIUM CHL 0.9% 1000 ML BAG XX ONE (08:15)
[2017-12-26] MEDS: CARVEDILOL 3.125 MG TAB PO SCH ×2 (09:10→22:21)
[2017-12-26] MEDS: SODIUM BICARBONATE 650 MG TAB PO SCH ×2 (09:10→22:19)
[2017-12-26] MEDS: amLODIPine BESYLATE 5 MG TAB PO SCH ×2 (09:10→22:20)
[2017-12-26] MEDS: FERROUS SULFATE 325 MG TAB PO SCH ×2 (09:11→22:20)
[2017-12-26] MEDS: MULTIPLE VITAMIN TAB PO SCH (09:11)
[2017-12-26] MEDS: ASPirin 81 mg TAB PO SCH (09:11)
[2017-12-26] MEDS: AMIODARONE HCL 200 MG TAB PO SCH ×2 (09:11→22:21)
[2017-12-26] MEDS: PANTOPRAZOLE 40 MG TAB PO SCH (09:11)
[2017-12-26] MEDS: ATORVASTATIN 20 MG TAB PO SCH (09:11)
[2017-12-26] MEDS: SEVELAMER 800 MG TAB PO SCH ×3 (09:12→18:59)
[2017-12-26] MEDS: AZITHROMYCIN 500MG/ 250ML 250 ML IV SCH (10:00)
[2017-12-26] MEDS: ENOXAPARIN SOD 80 MG/0.8ML SYRINGE SC SCH (10:00)
[2017-12-26] MEDS ORDERED: IODIXANOL 320MG/ML 100ML BTL IV ONE (11:15)
[2017-12-26] MEDS ORDERED: MIDAZOLAM HCL 1MG/1ML-2 ML VIAL ONE (11:19)
[2017-12-26] MEDS ORDERED: SODIUM CHL 0.9% 0 ML ONE (11:19)
[2017-12-26] MEDS ORDERED: ANGIOMAX 250 MG VIAL IV ONE (11:19)
[2017-12-26] MEDS ORDERED: fentaNYL CITRATE 100 MCG/2 ML VL ONE (11:19)
[2017-12-26] MEDS: PIPERACILLIN-TAZOB 2.25GM 50 ML IV SCH ×2 (16:23→23:46)
[2017-12-26 17:00] VITALS: BP 138/88
[2017-12-26] MEDS ORDERED: VANCOMYCIN 1GM/250ML 250 ML IV ONE (18:00)
[2017-12-26 18:39] VITALS: BP 138/88
[2017-12-26 20:00] VITALS: BP 157/90
[2017-12-26 22:00] VITALS: BP 135/89
[2017-12-26] MEDS: ACETAMINOPHEN 500 MG TAB PO PRN (23:47)
[2017-12-27] MEDS: ALBUTEROL SULF 2.5 MG/0.5ML(0.5%) NEB SOLN NEB SCH ×4 (00:30→18:41)
[2017-12-27] MEDS: IPRATROPIUM BROM 0.5 MG/2.5ML INH SOL NEB SCH ×4 (00:30→18:41)
[2017-12-27 05:00] VITALS: BP 116/78
[2017-12-27 05:55] LABS: Basophils # (auto) 0 uL; Basophils % (auto) 0.4 % (0.0-2.0); Eosinophils # (auto) 0 uL; Eosinophils % (auto) 0.8 % (0.0-7.0); Hematocrit 27.5 % (36.0-46.0); Hemoglobin 8.7 g/dL (12.2-16.2); Lymphocytes # (auto) 0.4 uL; Lymphocytes % (auto) 9.1 % (10.0-50.0); Mean Corpuscular Hemoglobin 28.4 pg (28.0-32.0); Mean Corpuscular Hgb Conc. 31.5 g/dL (32.0-36.0); Mean Corpuscular Volume 90.1 fL (80.0-100.0); Monocytes # (auto) 0.5 uL; Monocytes % (auto) 12.6 % (0.0-12.0); Neutrophils % (auto) 77.1 % (37.0-80.0); Nucleated Red Blood Cells % 1.1 %; Platelet Count (auto) 89 10^3/uL (140-450); Red Blood Cells 3.05 10^6/uL (4.0-5.20); Red Cell Distribution Width 19.3 % (11.8-14.3); White Blood Cell 3.9 10^3/uL (4.4-10.8)
[2017-12-27] MEDS: SODIUM CHLOR 0.9% PF (SALINE LOCK) 10ML VIAL IV SCH ×3 (06:09→21:26)
[2017-12-27] MEDS: FUROSEMIDE 40 MG/4 ML VIAL IV SCH ×3 (06:09→18:35)
[2017-12-27 06:14] LABS: Albumin 1.9 g/dL (3.4-5.0); BUN/Creatinine Ratio 6.3; Bilirubin, Total 0.5 mg/dL (0.2-1.0); Calcium 7.4 mg/dL (8.5-10.1); Potassium 3.3 mmol/L (3.5-5.1); Total Protein 6.1 g/dL (6.4-8.2)
[2017-12-27] MEDS: BUDESONIDE (INHALATION) 0.5 MG/2 ML NEB NEB SCH ×2 (06:24→18:41)
[2017-12-27 08:00] VITALS: BP 115/74
[2017-12-27] MEDS: SEVELAMER 800 MG TAB PO SCH ×3 (08:00→18:35)
[2017-12-27] MEDS: Novasource Renal 8 Ounces PO SCH ×2 (08:00→18:36)
[2017-12-27] MEDS: PRO-STAT 64 30ML PO SCH ×2 (08:00→18:35)
[2017-12-27 08:46] VITALS: BP 116/78
[2017-12-27] MEDS: ENOXAPARIN SOD 80 MG/0.8ML SYRINGE SC SCH (10:00)
[2017-12-27] MEDS: FERROUS SULFATE 325 MG TAB PO SCH ×2 (10:42→21:26)
[2017-12-27] MEDS: SODIUM BICARBONATE 650 MG TAB PO SCH ×2 (10:42→21:27)
[2017-12-27] MEDS: MULTIPLE VITAMIN TAB PO SCH (10:42)
[2017-12-27] MEDS: ASPirin 81 mg TAB PO SCH (10:43)
[2017-12-27] MEDS: CARVEDILOL 3.125 MG TAB PO SCH ×2 (10:43→21:28)
[2017-12-27] MEDS: ATORVASTATIN 20 MG TAB PO SCH (10:44)
[2017-12-27] MEDS: PANTOPRAZOLE 40 MG TAB PO SCH (10:44)
[2017-12-27] MEDS: AMIODARONE HCL 200 MG TAB PO SCH ×2 (10:44→21:27)
[2017-12-27] MEDS: amLODIPine BESYLATE 5 MG TAB PO SCH ×2 (10:44→21:28)
[2017-12-27 12:00] VITALS: BP 109/73
[2017-12-27] MEDS: PIPERACILLIN-TAZOB 2.25GM 50 ML IV SCH ×2 (13:04→23:51)
[2017-12-27 17:21] VITALS: BP 111/72
[2017-12-27 20:54] LABS: Urine Bacteria NONE SEEN /hpf (None Seen); Urine Blood 3+ /uL (Negative); Urine Specific Gravity 1.012 (1.001-1.035); Urine WBC 18 /hpf (0 - 5)
[2017-12-27] MEDS ORDERED: LEVOFLOXACIN 500MG 100 ML IV ONE (21:00)
[2017-12-27 21:51] LABS: Basophils # (auto) 0 uL; Basophils % (auto) 0.5 % (0.0-2.0); Eosinophils # (auto) 0 uL; Hematocrit 28.7 % (36.0-46.0); Lymphocytes # (auto) 0.4 uL; Lymphocytes % (auto) 8.2 % (10.0-50.0); Mean Corpuscular Hemoglobin 28.6 pg (28.0-32.0); Mean Corpuscular Hgb Conc. 31.5 g/dL (32.0-36.0); Mean Corpuscular Volume 90.8 fL (80.0-100.0); Monocytes # (auto) 0.5 uL; Monocytes % (auto) 10.5 % (0.0-12.0); Neutrophils % (auto) 79.8 % (37.0-80.0); Nucleated Red Blood Cells % 1.1 %; Platelet Count (auto) 134 10^3/uL (140-450); Red Blood Cells 3.16 10^6/uL (4.0-5.20); Red Cell Distribution Width 19.2 % (11.8-14.3)
[2017-12-27 22:00] VITALS: BP 122/77
[2017-12-28 05:00] VITALS: BP 94/60
[2017-12-28] MEDS: SODIUM CHLOR 0.9% PF (SALINE LOCK) 10ML VIAL IV SCH ×3 (06:00→22:05)
[2017-12-28] MEDS: FUROSEMIDE 40 MG/4 ML VIAL IV SCH ×2 (06:00→18:58)
[2017-12-28] MEDS: ACETAMINOPHEN 500 MG TAB PO PRN (06:01)
[2017-12-28] MEDS: IPRATROPIUM BROM 0.5 MG/2.5ML INH SOL NEB SCH ×4 (06:34→18:12)
[2017-12-28] MEDS: ALBUTEROL SULF 2.5 MG/0.5ML(0.5%) NEB SOLN NEB SCH ×4 (06:34→18:12)
[2017-12-28] MEDS: BUDESONIDE (INHALATION) 0.5 MG/2 ML NEB NEB SCH ×2 (06:34→18:12)
[2017-12-28 07:20] LABS: Basophils # (auto) 0 uL; Eosinophils # (auto) 0 uL; Hemoglobin 7.9 g/dL (12.2-16.2); Lymphocytes # (auto) 0.5 uL; Red Blood Cells 2.77 10^6/uL (4.0-5.20)
[2017-12-28 07:27] LABS: Basophils % (auto) 0.6 % (0.0-2.0); Eosinophils % (auto) 0.9 % (0.0-7.0); Lymphocytes % (auto) 12.3 % (10.0-50.0); Mean Corpuscular Hemoglobin 28.4 pg (28.0-32.0); Mean Corpuscular Hgb Conc. 31.4 g/dL (32.0-36.0); Mean Corpuscular Volume 90.4 fL (80.0-100.0); Monocytes # (auto) 0.5 uL; Monocytes % (auto) 12.6 % (0.0-12.0); Neutrophils % (auto) 73.6 % (37.0-80.0); Nucleated Red Blood Cells % 1.2 %; Platelet Count (auto) 85 10^3/uL (140-450); Red Cell Distribution Width 19.6 % (11.8-14.3)
[2017-12-28 07:59] LABS: Albumin 1.8 g/dL (3.4-5.0); BUN/Creatinine Ratio 6.6; Bilirubin, Total 0.5 mg/dL (0.2-1.0); Calcium 7.2 mg/dL (8.5-10.1); Potassium 3.4 mmol/L (3.5-5.1); Total Protein 5.9 g/dL (6.4-8.2)
[2017-12-28] MEDS: SEVELAMER 800 MG TAB PO SCH ×3 (08:31→18:00)
[2017-12-28] MEDS: Novasource Renal 8 Ounces PO SCH ×2 (08:32→18:58)
[2017-12-28] MEDS: PRO-STAT 64 30ML PO SCH ×2 (08:32→18:59)
[2017-12-28 09:00] VITALS: BP 97/67
[2017-12-28] MEDS: ASPirin 81 mg TAB PO SCH (09:19)
[2017-12-28] MEDS: FERROUS SULFATE 325 MG TAB PO SCH ×2 (09:20→22:05)
[2017-12-28] MEDS: SODIUM BICARBONATE 650 MG TAB PO SCH ×2 (09:21→22:05)
[2017-12-28] MEDS: MULTIPLE VITAMIN TAB PO SCH (09:22)
[2017-12-28] MEDS: AMIODARONE HCL 200 MG TAB PO SCH ×2 (09:22→22:05)
[2017-12-28] MEDS: ATORVASTATIN 20 MG TAB PO SCH (09:22)
[2017-12-28] MEDS: PANTOPRAZOLE 40 MG TAB PO SCH (09:23)
[2017-12-28] MEDS: PROMETHAZINE HCL 25 MG/ML 1ML IV PRN (09:34)
[2017-12-28] MEDS: CARVEDILOL 3.125 MG TAB PO SCH ×2 (10:00→22:06)
[2017-12-28] MEDS: amLODIPine BESYLATE 5 MG TAB PO SCH ×2 (10:00→22:06)
[2017-12-28] MEDS: ENOXAPARIN SOD 80 MG/0.8ML SYRINGE SC SCH (10:00)
[2017-12-28] MEDS: PROMETHAZINE W/CODEINE 5 ML ORAL SYRUP PO PRN (10:04)
[2017-12-28] MEDS: PIPERACILLIN-TAZOB 2.25GM 50 ML IV SCH (12:18)
[2017-12-28 13:00] VITALS: BP 110/68
[2017-12-28] MEDS: MORPHINE SULFATE 4 MG/ML SYR/VIAL IV PRN ×2 (16:18→20:10)
[2017-12-28 17:00] VITALS: BP 121/72
[2017-12-28 22:00] VITALS: BP 117/63
[2017-12-29] MEDS: PIPERACILLIN-TAZOB 2.25GM 50 ML IV SCH ×2 (03:46→12:25)
[2017-12-29 05:58] VITALS: BP 125/81
[2017-12-29 05:59] LABS: Basophils # (auto) 0 uL; Eosinophils # (auto) 0.1 uL; Hematocrit 25.5 % (36.0-46.0); Hemoglobin 7.9 g/dL (12.2-16.2); Lymphocytes # (auto) 0.6 uL; Mean Corpuscular Hgb Conc. 31.1 g/dL (32.0-36.0); Monocytes # (auto) 0.6 uL
[2017-12-29] MEDS: FUROSEMIDE 40 MG/4 ML VIAL IV SCH ×2 (06:00→18:48)
[2017-12-29 06:02] LABS: Basophils % (auto) 0.3 % (0.0-2.0); Eosinophils % (auto) 2.1 % (0.0-7.0); Mean Corpuscular Volume 93.1 fL (80.0-100.0); Monocytes % (auto) 13.9 % (0.0-12.0); Neutrophils # (auto) 3.1 uL; Neutrophils % (auto) 70.7 % (37.0-80.0); Platelet Count (auto) 86 10^3/uL (140-450); Red Blood Cells 2.74 10^6/uL (4.0-5.20); Red Cell Distribution Width 19.5 % (11.8-14.3); White Blood Cell 4.4 10^3/uL (4.4-10.8)
[2017-12-29] MEDS: ALBUTEROL SULF 2.5 MG/0.5ML(0.5%) NEB SOLN NEB SCH ×4 (06:15→18:26)
[2017-12-29] MEDS: IPRATROPIUM BROM 0.5 MG/2.5ML INH SOL NEB SCH ×4 (06:15→18:26)
[2017-12-29] MEDS: BUDESONIDE (INHALATION) 0.5 MG/2 ML NEB NEB SCH ×2 (06:15→18:26)
[2017-12-29 06:18] LABS: Albumin 1.8 g/dL (3.4-5.0); Calcium 6.9 mg/dL (8.5-10.1); Potassium 3.5 mmol/L (3.5-5.1)
[2017-12-29 06:21] LABS: Bilirubin, Total 0.4 mg/dL (0.2-1.0); Total Protein 5.8 g/dL (6.4-8.2)
[2017-12-29] MEDS: SODIUM CHLOR 0.9% PF (SALINE LOCK) 10ML VIAL IV SCH ×3 (06:33→22:00)
[2017-12-29 08:00] VITALS: BP 105/66
[2017-12-29] MEDS: PRO-STAT 64 30ML PO SCH ×2 (08:00→18:49)
[2017-12-29] MEDS: Novasource Renal 8 Ounces PO SCH ×2 (08:00→18:49)
[2017-12-29] MEDS: SEVELAMER 800 MG TAB PO SCH ×3 (08:00→18:49)
[2017-12-29] MEDS ORDERED: EPOETIN ALFA 10,000 UNIT/1 ML VIAL SC ONE (08:15)
[2017-12-29] MEDS: SODIUM BICARBONATE 650 MG TAB PO SCH ×2 (11:23→23:27)
[2017-12-29] MEDS: FERROUS SULFATE 325 MG TAB PO SCH ×2 (11:23→23:27)
[2017-12-29] MEDS: ATORVASTATIN 20 MG TAB PO SCH (11:23)
[2017-12-29] MEDS: amLODIPine BESYLATE 5 MG TAB PO SCH ×2 (11:23→23:30)
[2017-12-29] MEDS: AMIODARONE HCL 200 MG TAB PO SCH ×2 (11:24→23:28)
[2017-12-29] MEDS: MULTIPLE VITAMIN TAB PO SCH (11:24)
[2017-12-29] MEDS: PANTOPRAZOLE 40 MG TAB PO SCH (12:25)
[2017-12-29 13:38] VITALS: BP 114/66
[2017-12-29] MEDS: CARVEDILOL 3.125 MG TAB PO SCH ×2 (13:56→23:29)
[2017-12-29 16:49] VITALS: BP 105/68
[2017-12-29] MEDS: MORPHINE SULFATE 4 MG/ML SYR/VIAL IV PRN (19:32)
[2017-12-29] MEDS: LEVOFLOXACIN 250MG 50 ML IV SCH (21:23)
[2017-12-29] MEDS: PROMETHAZINE W/CODEINE 5 ML ORAL SYRUP PO PRN (23:40)
[2017-12-29 23:47] VITALS: BP 121/74
[2017-12-30] VITALS (8 sets, daily range): BP systolic 110–123; BP diastolic 72–77
[2017-12-30] MEDS: PIPERACILLIN-TAZOB 2.25GM 50 ML IV SCH ×3 (00:18→23:49)
[2017-12-30] MEDS: IPRATROPIUM BROM 0.5 MG/2.5ML INH SOL NEB SCH ×4 (05:39→18:16)
[2017-12-30] MEDS: ALBUTEROL SULF 2.5 MG/0.5ML(0.5%) NEB SOLN NEB SCH ×4 (05:39→18:17)
[2017-12-30] MEDS: BUDESONIDE (INHALATION) 0.5 MG/2 ML NEB NEB SCH ×2 (05:39→18:16)
[2017-12-30 05:40] LABS: Hemoglobin 8.2 g/dL (12.2-16.2); Mean Corpuscular Hemoglobin 28.7 pg (28.0-32.0); Red Blood Cells 2.87 10^6/uL (4.0-5.20)
[2017-12-30 05:42] LABS: Mean Corpuscular Hgb Conc. 31.6 g/dL (32.0-36.0); Mean Corpuscular Volume 90.7 fL (80.0-100.0); Platelet Count (auto) 91 10^3/uL (140-450); Red Cell Distribution Width 19.5 % (11.8-14.3); White Blood Cell 5.2 10^3/uL (4.4-10.8)
[2017-12-30 05:49] LABS: Basophils % (manual) 0 (0.0-2.0)
[2017-12-30 05:50] LABS: Blast Cells 0; Promyelocytes % 0; Reactive Lymphocytes 0
[2017-12-30 05:53] LABS: INR 0.98 (0.9-1.15); Partial Thromboplastin Time 30.2 sec (22.64-33.71); Prothrombin Time 10.7 sec (9.37-12.3)
[2017-12-30 05:59] LABS: Albumin 1.9 g/dL (3.4-5.0); BUN/Creatinine Ratio 4.6; Calcium 7.4 mg/dL (8.5-10.1); Potassium 3.3 mmol/L (3.5-5.1)
[2017-12-30] MEDS: FUROSEMIDE 40 MG/4 ML VIAL IV SCH ×3 (06:00→18:59)
[2017-12-30 06:02] LABS: Band Neutrophils % (manual) 2; Bilirubin, Total 0.5 mg/dL (0.2-1.0); Eosinophils % (manual) 1 (0-7); Lymphocytes % (manual) 16 (10.0-50.0); Metamyelocytes % 2; Monocytes % (manual) 9 (0-12); Myelocytes % 1; Total Protein 5.9 g/dL (6.4-8.2)
[2017-12-30] MEDS: PANTOPRAZOLE 40 MG TAB PO SCH (10:00)
[2017-12-30] MEDS: SEVELAMER 800 MG TAB PO SCH ×3 (10:28→18:00)
[2017-12-30] MEDS: SODIUM BICARBONATE 650 MG TAB PO SCH ×2 (10:28→21:57)
[2017-12-30] MEDS: MULTIPLE VITAMIN TAB PO SCH (10:29)
[2017-12-30] MEDS: AMIODARONE HCL 200 MG TAB PO SCH ×2 (10:29→21:58)
[2017-12-30] MEDS: FERROUS SULFATE 325 MG TAB PO SCH ×2 (10:29→21:57)
[2017-12-30] MEDS: CARVEDILOL 3.125 MG TAB PO SCH ×2 (10:29→21:59)
[2017-12-30] MEDS: ATORVASTATIN 20 MG TAB PO SCH ×2 (10:29→21:58)
[2017-12-30] MEDS: Novasource Renal 8 Ounces PO SCH ×2 (10:30→18:00)
[2017-12-30] MEDS: amLODIPine BESYLATE 5 MG TAB PO SCH ×2 (10:30→21:58)
[2017-12-30] MEDS: PRO-STAT 64 30ML PO SCH ×2 (10:30→18:00)
[2017-12-30] MEDS: SODIUM CHLOR 0.9% PF (SALINE LOCK) 10ML VIAL IV SCH ×3 (10:30→21:59)
[2017-12-30] MEDS: PROMETHAZINE HCL 25 MG/ML 1ML IV PRN (13:24)
[2017-12-30] MEDS: MORPHINE SULFATE 4 MG/ML SYR/VIAL IV PRN (13:24)
[2017-12-31] VITALS (7 sets, daily range): BP systolic 108–126; BP diastolic 55–93
[2017-12-31] MEDS: MORPHINE SULFATE 4 MG/ML SYR/VIAL IV PRN (02:20)
[2017-12-31] MEDS: SODIUM CHLOR 0.9% PF (SALINE LOCK) 10ML VIAL IV SCH ×3 (06:00→21:40)
[2017-12-31] MEDS: FUROSEMIDE 40 MG/4 ML VIAL IV SCH ×2 (06:00→18:06)
[2017-12-31] MEDS: IPRATROPIUM BROM 0.5 MG/2.5ML INH SOL NEB SCH ×4 (06:42→18:43)
[2017-12-31] MEDS: ALBUTEROL SULF 2.5 MG/0.5ML(0.5%) NEB SOLN NEB SCH ×4 (06:42→18:43)
[2017-12-31] MEDS: BUDESONIDE (INHALATION) 0.5 MG/2 ML NEB NEB SCH ×2 (06:43→18:44)
[2017-12-31 06:50] LABS: Basophils # (auto) 0 uL; Eosinophils # (auto) 0 uL; Eosinophils % (auto) 0.6 % (0.0-7.0); Hemoglobin 9.2 g/dL (12.2-16.2); Lymphocytes # (auto) 0.6 uL; Neutrophils # (auto) 4.5 uL; Red Blood Cells 3.26 10^6/uL (4.0-5.20)
[2017-12-31 06:52] LABS: Basophils % (auto) 0.4 % (0.0-2.0); Hematocrit 29.7 % (36.0-46.0); Lymphocytes % (auto) 9.9 % (10.0-50.0); Mean Corpuscular Hemoglobin 28.4 pg (28.0-32.0); Mean Corpuscular Hgb Conc. 31.1 g/dL (32.0-36.0); Mean Corpuscular Volume 91.2 fL (80.0-100.0); Monocytes # (auto) 0.9 uL; Monocytes % (auto) 14.9 % (0.0-12.0); Neutrophils % (auto) 74.2 % (37.0-80.0); Nucleated Red Blood Cells % 0.2 %; Platelet Count (auto) 117 10^3/uL (140-450); Red Cell Distribution Width 19.7 % (11.8-14.3); White Blood Cell 6.1 10^3/uL (4.4-10.8)
[2017-12-31] MEDS: PROMETHAZINE HCL 25 MG/ML 1ML IV PRN (06:52)
[2017-12-31 06:55] LABS: BUN/Creatinine Ratio 4.5; Potassium 3.5 mmol/L (3.5-5.1)
[2017-12-31] MEDS ORDERED: EPOETIN ALFA 10,000 UNIT/1 ML VIAL IV ONE (07:45)
[2017-12-31] MEDS: Novasource Renal 8 Ounces PO SCH ×2 (08:00→18:08)
[2017-12-31] MEDS: PRO-STAT 64 30ML PO SCH ×2 (08:00→18:07)
[2017-12-31] MEDS: SEVELAMER 800 MG TAB PO SCH ×3 (09:46→18:06)
[2017-12-31] MEDS: FERROUS SULFATE 325 MG TAB PO SCH ×2 (09:47→21:40)
[2017-12-31] MEDS: AMIODARONE HCL 200 MG TAB PO SCH ×2 (09:47→21:40)
[2017-12-31] MEDS: SODIUM BICARBONATE 650 MG TAB PO SCH ×2 (09:47→21:40)
[2017-12-31] MEDS: PANTOPRAZOLE 40 MG TAB PO SCH (09:48)
[2017-12-31] MEDS: amLODIPine BESYLATE 5 MG TAB PO SCH ×2 (09:48→21:40)
[2017-12-31] MEDS: MULTIPLE VITAMIN TAB PO SCH (09:48)
[2017-12-31] MEDS: CARVEDILOL 3.125 MG TAB PO SCH ×2 (09:48→21:41)
[2017-12-31] MEDS: PIPERACILLIN-TAZOB 2.25GM 50 ML IV SCH ×2 (11:39→23:37)
[2017-12-31] MEDS ORDERED: VANCOMYCIN 1GM/250ML 250 ML IV ONE (16:00)
[2017-12-31] MEDS: LEVOFLOXACIN 250MG 50 ML IV SCH (21:39)
[2017-12-31] MEDS: ATORVASTATIN 20 MG TAB PO SCH (21:40)
[2017-12-31] MEDS: PROMETHAZINE W/CODEINE 5 ML ORAL SYRUP PO PRN (21:52)
[2018-01-01 00:13] VITALS: BP 114/55
[2018-01-01 05:06] VITALS: BP 125/79
[2018-01-01] MEDS: ALBUTEROL SULF 2.5 MG/0.5ML(0.5%) NEB SOLN NEB SCH ×4 (06:00→19:05)
[2018-01-01] MEDS: IPRATROPIUM BROM 0.5 MG/2.5ML INH SOL NEB SCH ×4 (06:00→19:05)
[2018-01-01 06:01] LABS: Hemoglobin 8.4 g/dL (12.2-16.2)
[2018-01-01 06:03] LABS: Hematocrit 26.5 % (36.0-46.0); Mean Corpuscular Hgb Conc. 31.9 g/dL (32.0-36.0); Mean Corpuscular Volume 91.1 fL (80.0-100.0); Platelet Count (auto) 112 10^3/uL (140-450); Red Blood Cells 2.91 10^6/uL (4.0-5.20); Red Cell Distribution Width 19.8 % (11.8-14.3); White Blood Cell 5.6 10^3/uL (4.4-10.8)
[2018-01-01] MEDS: BUDESONIDE (INHALATION) 0.5 MG/2 ML NEB NEB SCH ×2 (06:12→19:05)
[2018-01-01 06:31] LABS: BUN/Creatinine Ratio 3.9; Bilirubin, Total 0.5 mg/dL (0.2-1.0); Calcium 7.7 mg/dL (8.5-10.1); Potassium 3.5 mmol/L (3.5-5.1); Total Protein 6.3 g/dL (6.4-8.2)
[2018-01-01 06:34] LABS: Band Neutrophils % (manual) 0; Basophils % (manual) 0 (0.0-2.0); Eosinophils % (manual) 0 (0-7); Metamyelocytes % 0; Myelocytes % 0; Promyelocytes % 0; Reactive Lymphocytes 0
[2018-01-01 06:35] LABS: Blast Cells 0
[2018-01-01] MEDS: SODIUM CHLOR 0.9% PF (SALINE LOCK) 10ML VIAL IV SCH ×3 (07:07→21:15)
[2018-01-01] MEDS: FUROSEMIDE 40 MG/4 ML VIAL IV SCH ×2 (07:07→19:57)
[2018-01-01] MEDS: PRO-STAT 64 30ML PO SCH ×2 (08:00→19:58)
[2018-01-01] MEDS: Novasource Renal 8 Ounces PO SCH ×2 (08:00→19:58)
[2018-01-01] MEDS: SEVELAMER 800 MG TAB PO SCH ×3 (08:00→19:58)
[2018-01-01 08:23] VITALS: BP 109/72
[2018-01-01 09:00] VITALS: BP 109/72
[2018-01-01] MEDS: AMIODARONE HCL 200 MG TAB PO SCH ×2 (09:24→22:02)
[2018-01-01] MEDS: SODIUM BICARBONATE 650 MG TAB PO SCH ×2 (09:24→22:01)
[2018-01-01] MEDS: MULTIPLE VITAMIN TAB PO SCH (09:29)
[2018-01-01] MEDS: FERROUS SULFATE 325 MG TAB PO SCH ×2 (09:29→22:01)
[2018-01-01] MEDS: PANTOPRAZOLE 40 MG TAB PO SCH (09:30)
[2018-01-01] MEDS: amLODIPine BESYLATE 5 MG TAB PO SCH ×2 (10:00→22:03)
[2018-01-01] MEDS: CARVEDILOL 3.125 MG TAB PO SCH ×2 (10:00→22:03)
[2018-01-01] MEDS ORDERED: IOHEXOL 350 MG/ML 100ML IJ ONE (11:41)
[2018-01-01] MEDS ORDERED: LIDOCAINE HCL 2 %PF INJ 10ML AMP IJ ONE (11:41)
[2018-01-01] MEDS: PIPERACILLIN-TAZOB 2.25GM 50 ML IV SCH ×2 (12:00→22:00)
[2018-01-01] MEDS ORDERED: fentaNYL CITRATE 100 MCG/2 ML VL ONE (12:06)
[2018-01-01] MEDS ORDERED: MIDAZOLAM HCL 1MG/1ML-2 ML VIAL ONE (12:07)
[2018-01-01] MEDS ORDERED: VANCOMYCIN 1GM/250ML 250 ML IV ONE (13:33)
[2018-01-01] MEDS ORDERED: VANCOMYCIN HCL 1000 MG VL ONE (13:33)
[2018-01-01 14:23] LABS: Basophils # (auto) 0 uL; Basophils % (auto) 0.4 % (0.0-2.0); Eosinophils # (auto) 0 uL; Eosinophils % (auto) 0.1 % (0.0-7.0); Hematocrit 30.1 % (36.0-46.0); Hemoglobin 9.4 g/dL (12.2-16.2); Lymphocytes # (auto) 0.6 uL; Lymphocytes % (auto) 9.9 % (10.0-50.0); Mean Corpuscular Hemoglobin 28.4 pg (28.0-32.0); Mean Corpuscular Hgb Conc. 31.2 g/dL (32.0-36.0); Mean Corpuscular Volume 90.9 fL (80.0-100.0); Monocytes # (auto) 0.7 uL; Monocytes % (auto) 11.6 % (0.0-12.0); Neutrophils # (auto) 4.8 uL; Nucleated Red Blood Cells % 0.1 %; Platelet Count (auto) 137 10^3/uL (140-450); Red Blood Cells 3.32 10^6/uL (4.0-5.20); Red Cell Distribution Width 19.3 % (11.8-14.3); White Blood Cell 6.2 10^3/uL (4.4-10.8)
[2018-01-01 14:57] LABS: Lymphocytes % (manual) 8 (10.0-50.0); Monocytes % (manual) 21 (0-12)
[2018-01-01 15:00] LABS: Albumin 2.3 g/dL (3.4-5.0); BUN/Creatinine Ratio 3.8; Bilirubin, Total 0.5 mg/dL (0.2-1.0); Potassium 3.8 mmol/L (3.5-5.1); Total Protein 7.4 g/dL (6.4-8.2)
[2018-01-01] MEDS: MORPHINE SULFATE 4 MG/ML SYR/VIAL IV PRN ×2 (15:37→20:08)
[2018-01-01 16:49] VITALS: BP 121/77
[2018-01-01 22:00] VITALS: BP 131/81
[2018-01-01] MEDS: ATORVASTATIN 20 MG TAB PO SCH (22:02)
[2018-01-01] MEDS: TEMAZEPAM 15 MG CAP PO PRN (23:24)
[2018-01-02] VITALS (8 sets, daily range): BP systolic 102–131; BP diastolic 50–86
[2018-01-02] MEDS: MORPHINE SULFATE 4 MG/ML SYR/VIAL IV PRN ×2 (04:27→09:49)
[2018-01-02] MEDS: FUROSEMIDE 40 MG/4 ML VIAL IV SCH ×2 (05:57→18:00)
[2018-01-02] MEDS: SODIUM CHLOR 0.9% PF (SALINE LOCK) 10ML VIAL IV SCH ×2 (06:00→14:08)
[2018-01-02] MEDS: IPRATROPIUM BROM 0.5 MG/2.5ML INH SOL NEB SCH ×3 (06:57→12:00)
[2018-01-02] MEDS: BUDESONIDE (INHALATION) 0.5 MG/2 ML NEB NEB SCH (06:58)
[2018-01-02] MEDS: ALBUTEROL SULF 2.5 MG/0.5ML(0.5%) NEB SOLN NEB SCH ×3 (06:59→12:00)
[2018-01-02] MEDS: SEVELAMER 800 MG TAB PO SCH ×3 (09:05→18:00)
[2018-01-02] MEDS: Novasource Renal 8 Ounces PO SCH ×2 (09:06→18:00)
[2018-01-02] MEDS: PRO-STAT 64 30ML PO SCH ×2 (09:06→18:00)
[2018-01-02] MEDS: SODIUM BICARBONATE 650 MG TAB PO SCH (09:49)
[2018-01-02] MEDS: MULTIPLE VITAMIN TAB PO SCH (09:49)
[2018-01-02] MEDS: FERROUS SULFATE 325 MG TAB PO SCH (09:50)
[2018-01-02] MEDS: PANTOPRAZOLE 40 MG TAB PO SCH (09:50)
[2018-01-02] MEDS: CARVEDILOL 3.125 MG TAB PO SCH (09:50)
[2018-01-02] MEDS: amLODIPine BESYLATE 5 MG TAB PO SCH (09:51)
[2018-01-02] MEDS: AMIODARONE HCL 200 MG TAB PO SCH (09:51)
[2018-01-02] MEDS: PIPERACILLIN-TAZOB 2.25GM 50 ML IV SCH (11:42)
[2018-01-02] MEDS: PROMETHAZINE HCL 25 MG/ML 1ML IV PRN (11:42)
[2018-01-02] MEDS ORDERED: EPOETIN ALFA 10,000 UNIT/1 ML VIAL IV ONE (13:45)
== END 2018-01-02 18:50 | disposition home or self-care (01) | DRG 161 ==
LOC: EDBD 05:25 → ER 05:26 → TELE 05:27 → DOU IN ICU 12-22 14:29 → TELE-CENTR 12-24 06:30 → TELE-WESTW 12-24 06:30
PROVIDERS: ADMIT Internal Medicine; ATTEND Internal Medicine
PROC: 5A09357 Assistance with Respiratory Ventilation, Less than 24 Consecutive Hours, Continuous Positive Airway Pressure (ICD-10-PCS; principal; 2017-12-21)
PROC: 5A1D70Z Performance of Urinary Filtration, Intermittent, Less than 6 Hours Per Day (ICD-10-PCS; 2017-12-22)
PROC: 5A09357 Assistance with Respiratory Ventilation, Less than 24 Consecutive Hours, Continuous Positive Airway Pressure (ICD-10-PCS; 2017-12-22)
PROC: 5A1D70Z Performance of Urinary Filtration, Intermittent, Less than 6 Hours Per Day (ICD-10-PCS; 2017-12-24)
PROC: 4A023N7 Measurement of Cardiac Sampling and Pressure, Left Heart, Percutaneous Approach (ICD-10-PCS; 2017-12-26)
PROC: B2111ZZ Fluoroscopy of Multiple Coronary Arteries using Low Osmolar Contrast (ICD-10-PCS; 2017-12-26)
PROC: B2151ZZ Fluoroscopy of Left Heart using Low Osmolar Contrast (ICD-10-PCS; 2017-12-26)
PROC: 5A1D70Z Performance of Urinary Filtration, Intermittent, Less than 6 Hours Per Day (ICD-10-PCS; 2017-12-26)
PROC: 5A1D70Z Performance of Urinary Filtration, Intermittent, Less than 6 Hours Per Day (ICD-10-PCS; 2017-12-29)
PROC: 5A1D70Z Performance of Urinary Filtration, Intermittent, Less than 6 Hours Per Day (ICD-10-PCS; 2017-12-30)
PROC: 0JH609Z Insertion of Cardiac Resynchronization Defibrillator Pulse Generator into Chest Subcutaneous Tissue and Fascia, Open Approach (ICD-10-PCS; 2018-01-01)
PROC: 02HK3KZ Insertion of Defibrillator Lead into Right Ventricle, Percutaneous Approach (ICD-10-PCS; 2018-01-01)
PROC: 02H63KZ Insertion of Defibrillator Lead into Right Atrium, Percutaneous Approach (ICD-10-PCS; 2018-01-01)
PROC: 02HL3KZ Insertion of Defibrillator Lead into Left Ventricle, Percutaneous Approach (ICD-10-PCS; 2018-01-01)
PROC: 5A1D70Z Performance of Urinary Filtration, Intermittent, Less than 6 Hours Per Day (ICD-10-PCS; 2018-01-02)
DX: I13.2 Hypertensive heart and chronic kidney disease with heart failure and with stage 5 chronic kidney disease, or end stage renal disease (principal); N17.0 Acute kidney failure with tubular necrosis; E43 Unspecified severe protein-calorie malnutrition; I42.0 Dilated cardiomyopathy; J15.6 Pneumonia due to other Gram-negative bacteria; N18.6 End stage renal disease; I50.41 Acute combined systolic (congestive) and diastolic (congestive) heart failure; R65.10 Systemic inflammatory response syndrome (SIRS) of non-infectious origin without acute organ dysfunction; J44.0 Chronic obstructive pulmonary disease with (acute) lower respiratory infection; E87.5 Hyperkalemia; D63.1 Anemia in chronic kidney disease; E78.5 Hyperlipidemia, unspecified; F41.9 Anxiety disorder, unspecified; I47.1 Supraventricular tachycardia; R74.8 Abnormal levels of other serum enzymes; I27.20 Pulmonary hypertension, unspecified; I77.6 Arteritis, unspecified; D69.6 Thrombocytopenia, unspecified; N01.8 Rapidly progressive nephritic syndrome with other morphologic changes; K21.9 Gastro-esophageal reflux disease without esophagitis; Z82.49 Family history of ischemic heart disease and other diseases of the circulatory system; Z68.22 Body mass index [BMI] 22.0-22.9, adult; Z99.2 Dependence on renal dialysis; Z90.710 Acquired absence of both cervix and uterus; Z86.711 Personal history of pulmonary embolism; Z90.49 Acquired absence of other specified parts of digestive tract; Z88.6 Allergy status to analgesic agent; Z79.899 Other long term (current) drug therapy; Z71.3 Dietary counseling and surveillance
CPT/HCPCS: 33249; 36415; 36600; 71045; 71046; 74176; 80048; 80053; 80061; 80202; 81001; 82550; 82805; 83520; 83735; 83880; 84100; 84443; 84484; 85007; 85025; 85027; 85379; 85610; 85652; 85730; 86160; 86256; 86850; 86900; 86901; 87040; 87081; 87086; 87804; 90935; 93005; 93306; 93458; 94640; 94660; 96374; 96375; 97116; 97163; 97530; 99152; 99153; J0153; J0885; J1642; J1956; J2250; J2543; J7060; Q0162; Q9967

== ENCOUNTER → 2018-03-03 | Outpatient (CLI) | payer MEDICAID, OTHER ==
[~2018-03-03] MED LIST changes: +ATOR20TA PO; -CYCL60CA PO; +FLUT110A INH; -FURO40TA4 PO; -GUAI600T23 PO; +ONDA4TAB5 PO; +PHEN1ELX5 PO; -PRE5T PO
== END | disposition home or self-care (01) ==
LOC: Rad HDHVI 11:18
PROVIDERS: ATTEND Internal Medicine Cardiovascular Disease
DX: I08.8 Other rheumatic multiple valve diseases (principal); E78.00 Pure hypercholesterolemia, unspecified; I13.2 Hypertensive heart and chronic kidney disease with heart failure and with stage 5 chronic kidney disease, or end stage renal disease; N18.6 End stage renal disease; I50.33 Acute on chronic diastolic (congestive) heart failure; E78.5 Hyperlipidemia, unspecified; Z79.899 Other long term (current) drug therapy; Z95.0 Presence of cardiac pacemaker
CPT/HCPCS: 93306